=== PATIENT | male | born 1940 | race American Indian/Alaskan Native ===

== ENCOUNTER 2021-10-14 03:04 | Inpatient (IN) | payer MEDICARE ==
[2021-10-14] MEDS ORDERED: methylPREDNISolone Sod Succinate 125 MG/2 ML INJ IV ONE (03:27)
[2021-10-14] MEDS ORDERED: hydrALAZINE 20 MG/1 ML INJ IV ONE ×2 (03:27→04:28)
[2021-10-14] MEDS ORDERED: EPINEPHrine RACEMIC 2.25% 0.5ML NEBU IH ONE (03:39)
[2021-10-14] MEDS ORDERED: IPRATROPIUM/ALBUTEROL SULFATE 3 ML AMPUL.NEB IH ONE ×2 (03:40→08:20)
--- NOTE | 2021-10-14 03:47 | Emergency Department Report ---
HPI <CINDI PEREIRA - Last Filed: 10/14/21 08:20> - HPI HPI: 81-year-old -[place] male presents to the emergency department via EMS from home with a complaint of shortness of breath and feeling like something is stuck in his throat. This started around 10 PM this evening after the patient took his nighttime medications. He denies any nausea or vomiting, fever, chest pain, back pain. He has not taken anything for symptoms prior to presentation. He denies eating any food or having any object that may have become lodged within his throat. He says that he is able to drink fluid. He has a past medical history of hypertension and diabetes. No recent travel or sick contacts at home. <HEYDI RUGGIERO - Last Filed: 10/14/21 21:12> - General Chief Complaint: Dyspnea/Respdistress Time Seen by Provider: 10/14/21 03:25 ED Past Medical Hx - Past Medical History Hx Hypertension: Yes Hx Diabetes: Yes - Surgical History Past Surgical History?: Yes <HEYDI RUGGIERO - Last Filed: 10/14/21 21:12> ED Review of Systems ROS: Stated complaint: DIFFICULTY BREATHING Other details as noted in HPI <CINDI PEREIRA - Last Filed: 10/14/21 08:20> ROS: Stated complaint: DIFFICULTY BREATHING Other details as noted in HPI Comment: All other systems reviewed and negative Constitutional: denies: chills, fever Eyes: denies: eye pain, vision change ENT: throat pain. denies: ear pain Respiratory: cough, shortness of breath Cardiovascular: denies: chest pain, palpitations Gastrointestinal: denies: abdominal pain, vomiting Genitourinary: denies: dysuria, discharge Musculoskeletal: denies: back pain, arthralgia Skin: denies: rash, lesions Neurological: denies: headache, weakness <HEYDI RUGGIERO - Last Filed: 10/14/21 21:12> Physical Exam - Physical Exam Vital Signs: Vital Signs 10/14/21 10/14/21 10/14/21 03:15 03:41 03:43 Temperature 98.6 F Pulse Rate 93 H 84 Pulse Rate [ Bilateral Throughout] Respiratory 20 Rate Respiratory Rate [Bilateral Throughout] Blood Pressure 209/110 198/106 Blood Pressure 208/116 [Left] O2 Sat by Pulse 100 99 Oximetry 0110/14/21 10/14/21 03:45 04:00 04:01 Temperature Pulse Rate 78 Pulse Rate [ 93 H Bilateral Throughout] Respiratory 23 Rate Respiratory 24 Rate [Bilateral Throughout] Blood Pressure 198/106 185/93 Blood Pressure [Left] O2 Sat by Pulse 99 99 Oximetry 10/14/21 10/14/21 10/14/21 04:15 04:31 04:40 Temperature Pulse Rate 91 H 94 H 94 H Pulse Rate [ Bilateral Throughout] Respiratory 21 22 Rate Respiratory Rate [Bilateral Throughout] Blood Pressure 216/109 210/95 210/95 Blood Pressure [Left] O2 Sat by Pulse 100 100 Oximetry 10/14/21 10/14/21 10/14/21 04:45 05:01 05:15 Temperature Pulse Rate 90 75 82 Pulse Rate [ Bilateral Throughout] Respiratory 25 H 22 18 Rate Respiratory Rate [Bilateral Throughout] Blood Pressure 186/84 148/69 145/58 Blood Pressure [Left] O2 Sat by Pulse 99 99 Oximetry 10/14/21 10/14/21 10/14/21 05:31 06:45 07:00 Temperature Pulse Rate 78 96 H 102 H Pulse Rate [ Bilateral Throughout] Respiratory 23 25 H 27 H Rate Respiratory Rate [Bilateral Throughout] Blood Pressure 131/54 131/55 136/61 Blood Pressure [Left] O2 Sat by Pulse 96 98 99 Oximetry <CINDI PEREIRA - Last Filed: 10/14/21 08:20> - Physical Exam Vital Signs: Vital Signs 10/14/21 10/14/21 03:15 03:41 Temperature 98.6 F Pulse Rate 93 H 84 Respiratory 20 Rate Blood Pressure 209/110 Blood Pressure 208/116 [Left] O2 Sat by Pulse 100 Oximetry Physical Exam: GENERAL: The patient is well-developed well-nourished. HENT: Normocephalic. Atraumatic. Patient has moist mucous membranes. EYES: Extraocular motions are intact. NECK: Supple. Trachea is midline. Stridor heard. CHEST/LUNGS: Clear to auscultation. There is tachypnea but no accessory muscle use. HEART/CARDIOVASCULAR: Regular. There is mild tachycardia. There is no murmur. ABDOMEN: Abdomen is soft, nontender. Patient has normal bowel sounds. There is no abdominal distention. SKIN: Skin is warm and dry. NEURO: The patient is awake, alert, and oriented. The patient is cooperative. The patient has no focal neurologic deficits. Normal speech. MUSCULOSKELETAL: There is no tenderness or deformity. There is no limitation range of motion. <HEYDI RUGGIERO - Last Filed: 10/14/21 21:12> ED Course Vital Signs 10/14/21 10/14/21 10/14/21 03:15 03:41 03:43 Temperature 98.6 F Pulse Rate 93 H 84 Pulse Rate [ Bilateral Throughout] Respiratory 20 Rate Respiratory Rate [Bilateral Throughout] Blood Pressure 209/110 198/106 Blood Pressure 208/116 [Left] O2 Sat by Pulse 100 99 Oximetry 10/14/21 10/14/21 10/14/21 03:45 04:00 04:01 Temperature Pulse Rate 78 Pulse Rate [ 93 H Bilateral Throughout] Respiratory 23 Rate Respiratory 24 Rate [Bilateral Throughout] Blood Pressure 198/106 185/93 Blood Pressure [Left] O2 Sat by Pulse 99 99 Oximetry 10/14/21 10/14/21 10/14/21 04:15 04:31 04:40 Temperature Pulse Rate 91 H 94 H 94 H Pulse Rate [ Bilateral Throughout] Respiratory 21 22 Rate Respiratory Rate [Bilateral Throughout] Blood Pressure 216/109 210/95 210/95 Blood Pressure [Left] O2 Sat by Pulse 100 100 Oximetry 10/14/21 10/14/21 10/14/21 04:45 05:01 05:15 Temperature Pulse Rate 90 75 82 Pulse Rate [ Bilateral Throughout] Respiratory 25 H 22 18 Rate Respiratory Rate [Bilateral Throughout] Blood Pressure 186/84 148/69 145/58 Blood Pressure [Left] O2 Sat by Pulse 99 99 Oximetry 10/14/21 10/14/21 10/14/21 05:31 06:45 07:00 Temperature Pulse Rate 78 96 H 102 H Pulse Rate [ Bilateral Throughout] Respiratory 23 25 H 27 H Rate Respiratory Rate [Bilateral Throughout] Blood Pressure 131/54 131/55 136/61 Blood Pressure [Left] O2 Sat by Pulse 96 98 99 Oximetry <CINDI PEREIRA - Last Filed: 10/14/21 08:20> Vital Signs 10/14/21 10/14/21 03:15 03:41 Temperature 98.6 F Pulse Rate 93 H 84 Respiratory 20 Rate Blood Pressure 209/110 Blood Pressure 208/116 [Left] O2 Sat by Pulse 100 Oximetry <HEYDI RUGGIERO - Last Filed: 10/14/21 21:12> ED Medical Decision Making - Lab Data Result diagrams: 10/14/21 04:21 10/14/21 04:21 - Radiology Data tient ID My Comment(s) Study Comments [address] [address] Cat Scan Report Signed Patient: SAL CLINTON MR#: [id number] : 1940 Acct:[id number] Age/Sex: 81 / M ADM Date: 10/14/21 Loc: ED Attending Dr: Ordering Physician: Cindi Mason MD Date of Service: 10/14/21 Procedure(s): CT neck wo con Accession Number(s): [id number] cc: Cindi Mason MD CT neck wo con INDICATION / CLINICAL INFORMATION: Stridor dyspnea. TECHNIQUE: Axial coronal and sagittal images All CT scans at this location are performed using CT dose reduction for ALARA by means of automated exposure control. COMPARISON: None available. FINDINGS: Parotid glands and submandibular glands appear normal. Small lymph nodes are scattered throughout the neck. Peristalsis soft tissues appear symmetric. Vocal folds may be mildly thickened however sym metric. There is diffuse esophageal wall thickening throughout. No significant mass effect on the trachea. Epiglottis appears normal. Degenerative changes seen throughout spine examination is slightly limited without IV contrast.. There may be some generalized soft tissue thickening and inflammation surrounding the airway. IMPRESSION: 1. Diffuse esophageal wall thickening throughout. Follow-up with GI is recommended. 2. Scattered small nodes throughout the neck however no dominant adenopathy or dominant mass. Symmetric soft tissue inflammation surrounding the airway at the region of the vocal folds, piriform sinuses and vallecula Signer Name: Wan Antonio MD Signed: 10/14/2021 7:41 AM Workstation Name: [id number] [address] [address] Cat Scan Report Signed Patient: SAL CLINTON MR#: [id number] : 1940 Acct:[id number] Age/Sex: 81 / M ADM Date: 10/14/21 Loc: ED Attending Dr: Ordering Physician: HEYDI RUGGIERO DO Date of Service: 10/14/21 Procedure(s): CT angio chest Accession Number(s): [id number] cc: HEYDI RUGGIERO, DO CTA CHEST WITH CONTRAST INDICATION / CLINICAL INFORMATION: S.O.B., elevated D-dimer, abnormal CXR (neck). TECHNIQUE: Axial CT images were obtained through the chest after injection of IV contrast. 3 plane MIP and/or 3D reconstructions were produced. All CT scans at this location are performed using CT dose reduction for ALARA by means of automated exposure control. COMPARISON: None available. FINDINGS: The pulmonary arteries are patent without filling defect or evidence for PTE. Esophageal wall is thickened throughout. Small pleural effusions are identified. No focal consolidation pleural effusion. No acute bone findings are seen. IMPRESSION: 1. No CT evidence for pulmonary embolism. 2. Diffuse thickening of esophageal wall throughout. Clinical correlation follow-up is recommended with GI. 3. Small pleural effusions. Signer Name: Wan Antonio MD Signed: 10/14/2021 7:37 AM Workstation Name: [id number] Transcribed By: CW Dictated By: GARY ANTONIO MD Electronically Authenticated By: GARY ANTONIO MD Signed Date/Time: 10/14/21736 DD/ 4 TD/TT: - Medical Decision Making I evaluated patient. He has intermittent stridor. CT revealed possible inflammation near the vocal cords. Normal epiglottis. There is diffuse esophageal wall thickening. Differential diagnosis includes malignancy, pharyngitis, COPD, vocal cord dysfunction I have ordered additional steroids antibiotics bronchodilators nebulizer therapy. Admitted to the hospital service for further treatment and evaluation. Esophageal thickening consideration esophagitis malignancy will need outpatient evaluation. Unclear if this is related to presentation. <CINDI PEREIRA - Last Filed: 10/14/21 08:20> - Lab Data Result diagrams: 10/14/21 04:21 10/14/21 04:21 Lab Results 10/14/21 10/14/21 10/14/21 Range/Units 04:21 04:21 04:21 WBC 12.6 H (4.5-11.0) K/mm3 RBC 5.32 H (3.65-5.03) M/mm3 Hgb 14.6 (11.8-15.2) gm/dl Hct 45.7 H (35.5-45.6) % MCV 86 (84-94) fl MCH 28 (28-32) pg MCHC 32 (32-34) % RDW 14.8 (13.2-15.2) % Plt Count 190 (140-440) K/mm3 Lymph % (Auto) 17.6 (13.4-35.0) % Holmes % (Auto) 8.9 H (0.0-7.3) % Eos % (Auto) 2.0 (0.0-4.3) % Baso % (Auto) 0.5 (0.0-1.8) % Lymph # (Auto) 2.2 (1.2-5.4) K/mm3 Holmes # (Auto) 1.1 H (0.0-0.8) K/mm3 Eos # (Auto) 0.3 (0.0-0.4) K/mm3 Baso # (Auto) 0.1 (0.0-0.1) K/mm3 Seg Neutrophils % 71.0 H (40.0-70.0) % Seg Neutrophils # 8.9 H (1.8-7.7) K/mm3 PT 13.9 (12.2-14.9) Sec. INR 0.96 (0.87-1.13) D-Dimer 473.24 H (0-234) ng/mlDDU Sodium 143 (137-145) mmol/L Potassium 3.5 L (3.6-5.0) mmol/L Chloride 103.2 (98-107) mmol/L Carbon Dioxide 25 (22-30) mmol/L Anion Gap 18 mmol/L BUN 20 (9-20) mg/dL Creatinine 1.6 H (0.8-1.3) mg/dL Estimated GFR 51 ml/min BUN/Creatinine Ratio 13 % Glucose 233 H (75-100) mg/dL Lactic Acid (0.7-2.0) mmol/L Calcium 9.2 (8.4-10.2) mg/dL Total Bilirubin 0.60 (0.1-1.2) mg/dL AST 20 (5-40) units/L ALT 43 (7-56) units/L Alkaline Phosphatase 103 (35-129) units/L Troponin T 0.011 (0.00-0.029) ng/mL Total Protein 7.5 (6.3-8.2) g/dL Albumin 4.0 (3.9-5) g/dL Albumin/Globulin Ratio 1.1 % 10/14/21 10/14/21 Range/Units 04:21 05:43 WBC (4.5-11.0) K/mm3 RBC (3.65-5.03) M/mm3 Hgb (11.8-15.2) gm/dl Hct (35.5-45.6) % MCV (84-94) fl MCH (28-32) pg MCHC (32-34) % RDW (13.2-15.2) % Plt Count (140-440) K/mm3 Lymph % (Auto) (13.4-35.0) % Holmes % (Auto) (0.0-7.3) % Eos % (Auto) (0.0-4.3) % Baso % (Auto) (0.0-1.8) % Lymph # (Auto) (1.2-5.4) K/mm3 Holmes # (Auto) (0.0-0.8) K/mm3 Eos # (Auto) (0.0-0.4) K/mm3 Baso # (Auto) (0.0-0.1) K/mm3 Seg Neutrophils % (40.0-70.0) % Seg Neutrophils # (1.8-7.7) K/mm3 PT (12.2-14.9) Sec. INR (0.87-1.13) D-Dimer (0-234) ng/mlDDU Sodium (137-145) mmol/L Potassium (3.6-5.0) mmol/L Chloride (98-107) mmol/L Carbon Dioxide (22-30) mmol/L Anion Gap mmol/L BUN (9-20) mg/dL Creatinine (0.8-1.3) mg/dL Estimated GFR ml/min BUN/Creatinine Ratio % Glucose (75-100) mg/dL Lactic Acid 2.90 H* 4.10 H* (0.7-2.0) mmol/L Calcium (8.4-10.2) mg/dL Total Bilirubin (0.1-1.2) mg/dL AST (5-40) units/L ALT (7-56) units/L Alkaline Phosphatase (35-129) units/L Troponin T (0.00-0.029) ng/mL Total Protein (6.3-8.2) g/dL Albumin (3.9-5) g/dL Albumin/Globulin Ratio % - EKG Data -: EKG Interpreted by Me EKG shows normal: sinus rhythm (PACs), axis (Right axis deviation), intervals, QRS complexes, ST-T waves Rate: normal - EKG Data When compared to previous EKG there are: previous EKG unavailable Interpretation: other (Sinus rhythm at 86 bpm, left axis deviation, PACs. No ST elevation IA) - Radiology Data Radiology results: report reviewed Soft tissue neck 2 views INDICATION: Feels like something stuck FINDINGS: No foreign body is identified. Airway appears patent. Shift of trachea to the left at the level of thoracic inlet could be secondary to thyroid or mass, nonspecific. Follow-up and clinical correlation. CHEST 1 VIEW 10/14/2021 2:44 AM INDICATION / CLINICAL INFORMATION: SOB. COMPARISON: None available. FINDINGS: SUPPORT DEVICES: None. HEART / MEDIASTINUM: No significant abnormality. LUNGS / PLEURA: Mild increased pulmonary vascularity with interstitial prominence in bilateral lungs No pneumothorax. Neck soft tissue 2 views INDICATION: Difficulty breathing FINDINGS: No prevertebral soft tissue swelling. The airway appears open. There is shift of the trachea to the left in the upper neck which may be due to degenerative change or thyroid. - Medical Decision Making This patient presented to the emergency department with the sensation that something was stuck in his throat and shortness of breath that started this evening around 10 PM. On examination he has some stridor heard. His initial vitals show an extremely elevated blood pressure. Patient was given a dose of hydralazine. He was given a breathing treatment w ith racemic epi, followed by a DuoNeb. The patient began having some nausea with vomiting. He was given a dose of Zofran, and then later a dose of Reglan. Chest x-ray did not show any pneumonia, pleural effusions, pneumothorax, widened mediastinum, but was read by radiology as showing a left-sided deviation of the trachea concerning for thyromegaly versus mass. The same was seen on the x-ray of the neck. Labs are remarkable for an elevated D-dimer level and some mild renal insufficiency. Patient also has a lactic acidosis. I attempted to get a CT angiography of the chest and discussed going up high enough on the CT imaging to evaluate the neck as well. However the patient continues to have some nausea with vomiting and does not appear comfortable laying flat and they were unable to finish the CT imaging. The has been signed out to my colleague, Dr. Pereira, who will continue the evaluation and assist with disposition. <HEYDI RUGGIERO S - Last Filed: 10/14/21 21:12> Critical care attestation.: If time is entered above; I have spent that time in minutes in the direct care of this critically ill patient, excluding procedure time. <CINDI PEREIRA - Last Filed: 10/14/21 08:20> Critical Care Time: No Critical care attestation.: If time is entered above; I have spent that time in minutes in the direct care of this critically ill patient, excluding procedure time. <HEYDI RUGGIERO - Last Filed: 10/14/21 21:12> ED Disposition Is pt being admited?: Yes Does the pt Need Aspirin: No <CINDI PEREIRA - Last Filed: 10/14/21 08:20> Is pt being admited?: Yes Time of Disposition: 21:12 <HEYDI RUGGIERO - Last Filed: 10/14/21 21:12> Clinical Impression: Acute dyspnea, Hypertensive urgency, Esophagitis Disposition: ADMITTED INPATIENT Condition: Fair
--- NOTE | 2021-10-14 03:54 | XRay Report ---
CHEST 1 VIEW 10/14/2021 2:44 AM INDICATION / CLINICAL INFORMATION: SOB. COMPARISON: None available. FINDINGS: SUPPORT DEVICES: None. HEART / MEDIASTINUM: No significant abnormality. LUNGS / PLEURA: Mild increased pulmonary vascularity with interstitial prominence in bilateral lungs No pneumothorax. Neck soft tissue 2 views INDICATION: Difficulty breathing FINDINGS: No prevertebral soft tissue swelling. The airway appears open. There is shift of the trache a to the left in the upper neck which may be due to degenerative change or thyroid. Signer Name: Wan Antonio MD Signed: 10/14/2021 3:50 AM Workstation Name: [id number]
--- NOTE | 2021-10-14 03:55 | XRay Report ---
Soft tissue neck 2 views INDICATION: Feels like something stuck FINDINGS: No foreign body is identified. Airway appears patent. Shift of trachea to the left at the l evel of thoracic inlet could be secondary to thyroid or mass, nonspecific. Follow-up and clinical cor relation. Signer Name: Wan Antonio MD Signed: 10/14/2021 3:51 AM Workstation Name: [id number]
[2021-10-14] MEDS ORDERED: ONDANSETRON 4 MG/2 ML INJ IV ONE ×2 (04:35→06:05)
[2021-10-14] MEDS ORDERED: ONDANSETRON 4 MG/2 ML INJ ONE (04:36)
[2021-10-14 04:39] LABS: Basophils # (Auto) 0.1 K/mm3 (0.0-0.1); Basophils % (Auto) 0.5 % (0.0-1.8); Eosinophils # (Auto) 0.3 K/mm3 (0.0-0.4); Hematocrit 45.7 % (35.5-45.6); Hemoglobin 14.6 gm/dl (11.8-15.2); Lymphocytes # (Auto) 2.2 K/mm3 (1.2-5.4); Lymphocytes % (Auto) 17.6 % (13.4-35.0); Mean Corpuscular HGB Conc 32 % (32-34); Mean Corpuscular Volume 86 fl (84-94); Monocytes # (Auto) 1.1 K/mm3 (0.0-0.8); Monocytes % (Auto) 8.9 % (0.0-7.3); Platelet Count 190 K/mm3 (140-440); Red Blood Count 5.32 M/mm3 (3.65-5.03); Red Cell Distribution Width 14.8 % (13.2-15.2)
[2021-10-14 04:47] LABS: INR 0.96 (0.87-1.13)
[2021-10-14 05:03] LABS: Calcium 9.2 mg/dL (8.4-10.2)
[2021-10-14] MEDS ORDERED: METOCLOPRAMIDE 10 MG/2 ML INJ IV ONE (05:07)
--- NOTE | 2021-10-14 07:41 | Cat Scan Report ---
CTA CHEST WITH CONTRAST INDICATION / CLINICAL INFORMATION: S.O.B., elevated D-dimer, abnormal CXR (neck). TECHNIQUE: Axial CT images were obtained through the chest after injection of IV contrast. 3 plane RI P and/or 3D reconstructions were produced. All CT scans at this location are performed using CT dose reduction for ALARA by means of automated exposure control. COMPARISON: None available. FINDINGS: The pulmonary arteries are patent without filling defect or evidence for PTE. Esophageal wall is thic kened throughout. Small pleural effusions are identified. No focal consolidation pleural effusion. No acute bone findings are seen. IMPRESSION: 1. No CT evidence for pulmonary embolism. 2. Diffuse thickening of esophageal wall throughout. Clinical correlation follow-up is recommended wi th GI. 3. Small pleural effusions. Signer Name: Wan Antonio MD Signed: 10/14/2021 7:37 AM Workstation Name: [id number]
--- NOTE | 2021-10-14 07:45 | Cat Scan Report ---
CT neck wo con INDICATION / CLINICAL INFORMATION: Stridor dyspnea. TECHNIQUE: Axial coronal and sagittal images All CT scans at this location are performed using CT dose reduction for ALARA by means of automated exposure control. COMPARISON: None available. FINDINGS: Parotid glands and submandibular glands appear normal. Small lymph nodes are scattered throughout the neck. Peristalsis soft tissues appear symmetric. Vocal folds may be mildly thickened however symmetr ic. There is diffuse esophageal wall thickening throughout. No significant mass effect on the trachea . Epiglottis appears normal. Degenerative changes seen throughout spine examination is slightly limit ed without IV contrast.. There may be some generalized soft tissue thickening and inflammation surrou nding the airway. IMPRESSION: 1. Diffuse esophageal wall thickening throughout. Follow-up with GI is recommended. 2. Scattered small nodes throughout the neck however no dominant adenopathy or dominant mass. Symmetr ic soft tissue inflammation surrounding the airway at the region of the vocal folds, piriform sinuses and vallecula Signer Name: Wan Antonio MD Signed: 10/14/2021 7:41 AM Workstation Name: [id number]
[2021-10-14] MEDS ORDERED: dexAMETHasone 20 MG/5 ML VIAL IV ONE (22:04)
[2021-10-14] MEDS ORDERED: PANTOPRAZOLE 40 MG INJ IV ONE (22:10)
--- NOTE | 2021-10-14 23:14 | History and Physical Report ---
History of Present Illness Date of examination: 10/14/21 Date of admission: 10/14/2021 Chief complaint: Shortness of breath since last night History of present illness: 81-year-old -[place] male with history of hypertension and diabetes comes in for shortness of breath and sore throat. Started around 10 PM last night. No nausea or vomiting. No fever or chills. Shortness of breath at rest. No chest pain. No back pain. No travel or sick contacts. Patient has some difficulty swallowing and some pain with swallowing. - Past Medical History --Hypertension: Yes --Diabetes: Yes - Surgical History --Past Surgical History?: Yes - Family history --hypertension -Social history --no smoking or alcohol Review of Systems ROS: Stated complaint: DIFFICULTY BREATHING Other details as noted in HPI Comment: All other systems reviewed and negative Constitutional: denies: chills, fever Eyes: denies: eye pain, vision change ENT: throat pain. denies: ear pain Respiratory: cough, shortness of breath Cardiovascular: denies: chest pain, palpitations Gastrointestinal: denies: abdominal pain, vomiting Genitourinary: denies: dysuria, discharge Musculoskeletal: denies: back pain, arthralgia Skin: denies: rash, lesions Neurological: denies: headache, weakness Medications and Allergies Allergies Allergy/AdvReac Type Severity Reaction Status Date / Time No Known Allergies Allergy Verified 10/14/21 04:47 Exam - Constitutional Vitals: Temp Pulse Resp BP Pulse Ox 97.8 F 90 18 153/83 100 10/14/21 09:44 10/14/21 21:00 10/14/21 21:00 10/14/21 21:00 10/14/21 21:00 General appearance: Present: no acute distress, well-nourished - EENT Eyes: Present: PERRL ENT: hearing intact, clear oral mucosa - Neck Neck: Present: supple, normal ROM - Respiratory Respiratory effort: normal Respiratory: bilateral: CTA, rhonchi, wheezing - Cardiovascular Heart rate: 78 Rhythm: regular Heart Sounds: Present: S1 & S2. Absent: rub, click - Extremities Extremities: pulses symmetrical, No edema Peripheral Pulses: within normal limits - Abdominal General gastrointestinal: Present: soft, non-tender, non-distended, normal bowel sounds Male genitourinary: Present: normal - Integumentary Integumentary: Present: clear, warm, dry - Musculoskeletal Musculoskeletal: gait normal, strength equal bilaterally - Psychiatric Psychiatric: appropriate mood/affect, intact judgment & insight - Neurologic Neurologic: CNII-XII intact, moves all extremities - Allied Health Allied health notes reviewed: nursing, case management HEART Score - HEART Score Troponin: Troponin T 0.011 ng/mL (0.00-0.029) 10/14/21 04:21 Results - Labs CBC & Chem 7: 10/14/21 04:21 10/14/21 04:21 Labs: Laboratory Last Values WBC 12.6 K/mm3 (4.5-11.0) H 10/14/21 04:21 RBC 5.32 M/mm3 (3.65-5.03) H 10/14/21 04:21 Hgb 14.6 gm/dl (11.8-15.2) 10/14/21 04:21 Hct 45.7 % (35.5-45.6) H 10/14/21 04:21 MCV 86 fl (84-94) 10/14/21 04:21 MCH 28 pg (28-32) 10/14/21 04:21 MCHC 32 % (32-34) 10/14/21 04:21 RDW 14.8 % (13.2-15.2) 10/14/21 04:21 Plt Count 190 K/mm3 (140-440) 10/14/21 04:21 Lymph % (Auto) 17.6 % (13.4-35.0) 10/14/21 04:21 [place] % (Auto) 8.9 % (0.0-7.3) H 10/14/21 04:21 Eos % (Auto) 2.0 % (0.0-4.3) 10/14/21 04:21 Baso % (Auto) 0.5 % (0.0-1.8) 10/14/21 04:21 Lymph # (Auto) 2.2 K/mm3 (1.2-5.4) 10/14/21 04:21 [place] # (Auto) 1.1 K/mm3 (0.0-0.8) H 10/14/21 04:21 Eos # (Auto) 0.3 K/mm3 (0.0-0.4) 10/14/21 04:21 Baso # (Auto) 0.1 K/mm3 (0.0-0.1) 10/14/21 04:21 Seg Neutrophils % 71.0 % (40.0-70.0) H 10/14/21 04:21 Seg Neutrophils # 8.9 K/mm3 (1.8-7.7) H 10/14/21 04:21 PT 13.9 Sec. (12.2-14.9) 10/14/21 04:21 INR 0.96 (0.87-1.13) 10/14/21 04:21 D-Dimer 473.24 ng/mlDDU (0-234) H 10/14/21 04:21 Sodium 143 mmol/L (137-145) 10/14/21 04:21 Potassium 3.5 mmol/L (3.6-5.0) L 10/14/21 04:21 Chloride 103.2 mmol/L (98-107) 10/14/21 04:21 Carbon Dioxide 25 mmol/L (22-30) 10/14/21 04:21 Anion Gap 18 mmol/L 10/14/21 04:21 BUN 20 mg/dL (9-20) 10/14/21 04:21 Creatinine 1.6 mg/dL (0.8-1.3) H 10/14/21 04:21 Estimated GFR 51 ml/min 10/14/21 04:21 BUN/Creatinine Ratio 13 % 10/14/21 04:21 Glucose 233 mg/dL (75-100) H 10/14/21 04:21 Lactic Acid 4.10 mmol/L (0.7-2.0) H* 10/14/21 05:43 Calcium 9.2 mg/dL (8.4-10.2) 10/14/21 04:21 Total Bilirubin 0.60 mg/dL (0.1-1.2) 10/14/21 04:21 AST 20 units/L (5-40) 10/14/21 04:21 ALT 43 units/L (7-56) 10/14/21 04:21 Alkaline Phosphatase 103 units/L (35-129) 10/14/21 04:21 Troponin T 0.011 ng/mL (0.00-0.029) 10/14/21 04:21 Total Protein 7.5 g/dL (6.3-8.2) 10/14/21 04:21 Albumin 4.0 g/dL (3.9-5) 10/14/21 04:21 Albumin/Globulin Ratio 1.1 % 10/14/21 04:21 - Imaging and Cardiology Imaging and Cardiology: Chest x-ray next Lungs mild increased pulmonary vascularity with interstitial prominence and bilateral lungs. No pneumothorax. Findings No prevertebral soft tissue swelling. The airway appears open. There is shift of the trachea to the left in the upper neck which may be related to degenerative changes or thyroid swelling Soft tissue of the neck No foreign body. Distal trachea to the left Could be secondary to thyroid mass Nonspecific Chest CT No CT evidence of pulmonary embolism Diffuse thickening of the esophageal wall throughout Clinical correlation quality recommended with GI Small pleural effusion Neck CT diffuse esophageal wall thickening throughout. Follow-up with GI as recommended Scattered small nodes throughout the neck however no dominant adenopathy or dominant mass. Symptoms asymmetric soft tissue inflammation surrounding the area in the region of the vocal folds pyriform sinuses and vallecula. Assessment and Plan Advance Directives: Yes (Full code chief) Plan of care discussed with patient/family: Yes - Patient Problems (1) SIRS (systemic inflammatory response syndrome) Current Visit: Yes Status: Acute Plan to address problem: Inflammatory markers elevated Lactic acid is elevated Rule out COVID (2) Hypertensive emergency Current Visit: Yes Status: Acute Plan to address problem: Patient initiated on valsartan and amlodipine and Coreg IV hydralazine 10 mg every 3 hours as needed (3) GUILLAUME (acute kidney injury) Current Visit: Yes Status: Acute Plan to address problem: IV fluids gently for 12 hours (4) Esophagitis Current Visit: Yes Status: Acute Plan to address problem: GI evaluation Possible EGD Protonix 40 mg IV twice a day (5) COPD (chronic obstructive pulmonary disease) Current Visit: Yes Status: Acute Plan to address problem: Patient initiated on IV antibiotics Rocephin and, Zithromax and IV Solu-Medrol May be discontinued in 24 to 48 hours depending on patient's response (6) T2DM (type 2 diabetes mellitus) Current Visit: Yes Status: Chronic Qualifiers: Diabetes mellitus [facility] insulin use: unspecified director long term care insulin use status Plan to address problem: Accu-Cheks every 6 and coverage Check hemoglobin A1c (7) Person under investigation for COVID-19 Current Visit: Yes Status: Acute Plan to address problem: COVID to be ruled out Coronavirus PCR in a.m. (8) Elevated brain natriuretic peptide (BNP) level Current Visit: Yes Status: Acute Plan to address problem: Echocardiogram for ejection fraction and valve function (9) DVT prophylaxis Current Visit: Yes Status: Acute Plan to address problem: On anticoagulation and GI prophylaxis (10) Advance care planning Current Visit: Yes Status: Acute Plan to address problem: Related education conducted, care plan discussed, diagnosis discussed, prognosis discussed. Patient is full code. Patient acknowledges understanding and agreement with care plan +30 minutes.
[2021-10-14] MEDS ORDERED: MORPHINE 2 MG/1 ML INJ IV PRN (23:15)
[2021-10-14] MEDS ORDERED: ONDANSETRON 4 MG/2 ML INJ IV PRN (23:15)
[2021-10-14] MEDS ORDERED: METOCLOPRAMIDE 10 MG/2 ML INJ IV PRN (23:15)
[2021-10-14] MEDS ORDERED: HYDROmorphone 1 MG/1 ML INJ IV PRN (23:15)
[2021-10-14] MEDS ORDERED: ACETAMINOPHEN 325 MG TAB PO PRN (23:15)
[2021-10-14] MEDS ORDERED: IPRATROPIUM/ALBUTEROL SULFATE 3 ML AMPUL.NEB IH PRN (23:18)
[2021-10-14] MEDS: AZITHROMYCIN/NS 500 MG/250 ML 500 MG/250 ML BAG IV SCH (23:50)
[2021-10-14] MEDS: methylPREDNISolone Sod Succinate 40 MG/1 ML INJ IV SCH (23:50)
[2021-10-15] MEDS: PANTOPRAZOLE 40 MG INJ IV SCH ×2 (02:16→13:46)
[2021-10-15] MEDS ORDERED: SODIUM CHLORIDE 0.9% 1000 ML 1,000 ML IV SCH (02:30)
[2021-10-15 06:31] LABS: Hematocrit 41.9 % (35.5-45.6); Hemoglobin 13.3 gm/dl (11.8-15.2); Mean Corpuscular HGB Conc 32 % (32-34); Mean Corpuscular Volume 86 fl (84-94); Platelet Count 160 K/mm3 (140-440); Red Blood Count 4.88 M/mm3 (3.65-5.03)
[2021-10-15] MEDS: INSULIN LISPRO 100 UNIT/ML SUB-Q SCH ×4 (06:34→18:15)
[2021-10-15] MEDS: methylPREDNISolone Sod Succinate 40 MG/1 ML INJ IV SCH ×3 (06:41→21:43)
[2021-10-15 07:13] LABS: Albumin 3.9 g/dL (3.9-5); Calcium 9.4 mg/dL (8.4-10.2)
--- NOTE | 2021-10-15 08:20 | Progress Note ---
Assessment and Plan Assessment and plan: 81-year-old -[place] male with history of hypertension and diabetes comes in for shortness of breath and sore throat. Started around 10 PM last night. No nausea or vomiting. No fever or chills. Shortness of breath at rest. No chest pain. No back pain. No travel or sick contacts. Patient has some difficulty swallowing and some pain with swallowing. Initial work-up chest x-ray next Lungs mild increased pulmonary vascularity with interstitial prominence and bilateral lungs. No pneumothorax. Findings No prevertebral soft tissue swelling. The airway appears open. There is shift of the trachea to the left in the upper neck which may be related to degenerative changes or thyroid swelling Soft tissue of the neck No foreign body. Distal trachea to the left Could be secondary to thyroid mass Nonspecific Chest CT No CT evidence of pulmonary embolism Diffuse thickening of the esophageal wall throughout Clinical correlation quality recommended with GI Small pleural effusion Neck CT diffuse esophageal wall thickening throughout. Follow-up with GI as recommended Scattered small nodes throughout the neck however no dominant adenopathy or dominant mass. Symptoms asymmetric soft tissue inflammation surrounding the area in the region of the vocal folds pyriform sinuses and vallecula. SIRS (systemic inflammatory response syndrome) Hypertensive emergency GUILLAUME (acute kidney injury) Secondary to vasomotor nephropathy Esophagitis COPD (chronic obstructive pulmonary disease) T2DM (type 2 diabetes mellitus) Elevated brain natriuretic peptide (BNP) level Person under investigation for COVID-19 Tracheal deviation with narrowing Elevated D-dimer Plan 10/15: Clinically patient has functional improvement room air sat is 100%. Nevertheless exertion has not been checked. Imaging studies is negative for pulmonary embolism. We will obtain a Doppler of the lower extremities and also obtain nephrology consultation due to worsening renal function which could be secondary to contrast-induced nephropathy versus mild underlying chronic stable congestive heart failure. Will await echocardiogram report at this time. We will also adjust insulin for better management Will obtain pulmonary consultation to further evaluate narrowing of the trachea possible extrinsic versus intrinsic compression. Continue Inflammatory markers elevated Lactic acid is elevated Rule out COVID Patient initiated on valsartan and amlodipine and Coreg IV hydralazine 10 mg every 3 hours as needed GI evaluation Possible EGD Protonix 40 mg IV twice a day Patient initiated on IV antibiotics Rocephin and, Zithromax and IV Solu-Medrol May be discontinued in 24 to 48 hours depending on patient's response Accu-Cheks every 6 and coverage Check hemoglobin A1c COVID to be ruled out Coronavirus PCR in a.m. Echocardiogram for ejection fraction and valve function Plan discussed with the patient and with the nurse at bedside. History Interval history: Patient seen and examined, clinically improving. No difficulty swallowing, reports improvement in breathing. Respiratory therapist reports 100% saturation on room air. Patient is a poor historian. Hospitalist Physical - Physical exam Narrative exam: General appearance: Present: no acute distress, cachetic, temporal wasting noted. - EENT Eyes: Present: PERRL ENT: hearing intact, clear oral mucosa - Neck Neck: Present: supple, normal ROM - Respiratory Respiratory effort: normal Respiratory: bilateral: mild rhonchi, No wheezing - Cardiovascular Heart rate: 78 Rhythm: regular Heart Sounds: Present: S1 & S2. Absent: rub, click - Extremities Extremities: pulses symmetrical, No edema Peripheral Pulses: within normal limits - Abdominal General gastrointestinal: Present: soft, non-tender, non-distended, normal bowel sounds Male genitourinary: Present: normal - Integumentary Integumentary: Present: clear, warm, dry - Musculoskeletal Musculoskeletal: gait normal, strength equal bilaterally - Psychiatric Psychiatric: appropriate mood/affect, intact judgment & insight - Neurologic Neurologic: CNII-XII intact, moves all extremities - Allied Health Allied health notes reviewed: nursing, case management - Constitutional Vitals: Temp Pulse Resp BP Pulse Ox 99.1 F 93 H 18 152/76 94 10/15/21 06:00 10/15/21 06:00 10/15/21 06:00 10/15/21 06:00 10/15/21 04:28 General appearance: Present: no acute distress, cachectic HEART Score - HEART Score Troponin: Troponin T 0.011 ng/mL (0.00-0.029) 10/14/21 04:21 Results - Labs CBC & Chem 7: 10/15/21 05:30 10/15/21 05:30 Labs: Laboratory Last Values WBC 13.5 K/mm3 (4.5-11.0) H 10/15/21 05:30 RBC 4.88 M/mm3 (3.65-5.03) 10/15/21 05:30 Hgb 13.3 gm/dl (11.8-15.2) 10/15/21 05:30 Hct 41.9 % (35.5-45.6) 10/15/21 05:30 MCV 86 fl (84-94) 10/15/21 05:30 MCH 27 pg (28-32) L 10/15/21 05:30 MCHC 32 % (32-34) 10/15/21 05:30 RDW 15.0 % (13.2-15.2) 10/15/21 05:30 Plt Count 160 K/mm3 (140-440) 10/15/21 05:30 Lymph % (Auto) 17.6 % (13.4-35.0) 10/14/21 04:21 [place] % (Auto) 8.9 % (0.0-7.3) H 10/14/21 04:21 Eos % (Auto) 2.0 % (0.0-4.3) 10/14/21 04:21 Baso % (Auto) 0.5 % (0.0-1.8) 10/14/21 04:21 Lymph # (Auto) 2.2 K/mm3 (1.2-5.4) 10/14/21 04:21 [place] # (Auto) 1.1 K/mm3 (0.0-0.8) H 10/14/21 04:21 Eos # (Auto) 0.3 K/mm3 (0.0-0.4) 10/14/21 04:21 Baso # (Auto) 0.1 K/mm3 (0.0-0.1) 10/14/21 04:21 Seg Neutrophils % National Account Representative 10/15/21 05:30 Seg Neutrophils # 8.9 K/mm3 (1.8-7.7) H 10/14/21 04:21 PT 13.9 Sec. (12.2-14.9) 10/14/21 04:21 INR 0.96 (0.87-1.13) 10/14/21 04:21 D-Dimer 473.24 ng/mlDDU (0-234) H 10/14/21 04:21 Sodium 140 mmol/L (137-145) 10/15/21 05:30 Potassium 4.5 mmol/L (3.6-5.0) D 10/15/21 05:30 Chloride 100.1 mmol/L (98-107) 10/15/21 05:30 Carbon Dioxide 25 mmol/L (22-30) 10/15/21 05:30 Anion Gap 19 mmol/L 10/15/21 05:30 BUN 30 mg/dL (9-20) H 10/15/21 05:30 Creatinine 2.3 mg/dL (0.8-1.3) H 10/15/21 05:30 Estimated GFR 33 ml/min 10/15/21 05:30 BUN/Creatinine Ratio 13 % 10/15/21 05:30 Glucose 279 mg/dL (75-100) H 10/15/21 05:30 POC Glucose 252 mg/dL (70-105) H 10/15/21 06:58 Hemoglobin A1c 8.2 % (4-6) H 10/15/21 05:30 Lactic Acid 4.10 mmol/L (0.7-2.0) H* 10/14/21 05:43 Calcium 9.4 mg/dL (8.4-10.2) 10/15/21 05:30 Total Bilirubin 0.50 mg/dL (0.1-1.2) 10/15/21 05:30 AST 49 units/L (5-40) H 10/15/21 05:30 ALT 62 units/L (7-56) H 10/15/21 05:30 Alkaline Phosphatase 88 units/L (35-129) 10/15/21 05:30 Troponin T 0.011 ng/mL (0.00-0.029) 10/14/21 04:21 NT-Pro-B Natriuret Pep 4751 pg/mL (0-900) H 10/14/21 22:33 Total Protein 6.9 g/dL (6.3-8.2) 10/15/21 05:30 Albumin 3.9 g/dL (3.9-5) 10/15/21 05:30 Albumin/Globulin Ratio 1.3 % 10/15/21 05:30 Govea/IV: Voiding Method Urinal Active Medications - Current Medications Current Medications: Generic Name Dose Route Start Last Admin Trade Name Freq PRN Reason Stop Dose Admin Acetaminophen 650 mg 10/14/21 23:15 Acetaminophen 325 Mg Tab PO Q4H PRN Pain MILD(1-3)/Fever >100.5/ROONEY Albuterol/Ipratropium 1 ampul 10/15/21 08:00 Ipratropium/Albuterol Sulfate 3 Ml Ampul.Neb IH QIDRT MARY Enoxaparin Sodium 30 mg 10/15/21 10:00 Enoxaparin 30 Mg/0.3 Ml Inj SUB-Q QDAY MARY Hydromorphone HCl 0.5 mg 10/14/21 23:15 Hydromorphone 1 Mg/1 Ml Inj IV Q3H PRN Pain , Severe (7-10) Azithromycin 500 mg in 250 mls @ 250 mls/hr 10/14/21 23:45 10/14/21 23:50 Zithromax/Ns IV 10/18/21 10:59 250 mls/hr Q24HR MARY Administration Ceftriaxone Sodium 2 gm in 100 mls @ 200 mls/hr 10/15/21 10:00 Rocephin/Ns 2 Gm/100 Ml IV 10/19/21 10:29 Q24HR MARY Protocol Sodium Chloride 1,000 mls @ 75 mls/hr 10/15/21 02:30 10/15/21 07:24 Nacl 0.9% 1000 Ml IV 10/15/21 11:30 75 mls/hr DIRECT MARY Administration Insulin Human Lispro 0 unit 10/15/21 06:00 10/15/21 07:23 Insulin Lispro 100 Unit/Ml SUB-Q 4 unit Q6HR MARY Administration Protocol Methylprednisolone Sodium Succinate 60 mg 10/14/21 23:45 10/15/21 06:41 Methylprednisolone Sod Succinate 40 Mg/1 Ml Inj IV 60 mg Q8HR MARY Administration Metoclopramide HCl 5 mg 10/14/21 23:15 Metoclopramide 10 Mg/2 Ml Inj IV Q6H PRN Nausea And Vomiting Morphine Sulfate 2 mg 10/14/21 23:15 Morphine 2 Mg/1 Ml Inj IV Q4H PRN Pain, Moderate (4-6) Ondansetron HCl 4 mg 10/14/21 23:15 Ondansetron 4 Mg/2 Ml Inj IV Q8H PRN Nausea And Vomiting Pantoprazole Sodium 40 mg 10/14/21 23:45 10/15/21 02:16 Pantoprazole 40 Mg Inj IV Not Given Q12H MARY Sodium Chloride 10 ml 10/15/21 10:00 Sodium Chloride 0.9% 10 Ml Flush Syringe IV BID MARY Sodium Chloride 10 ml 01/22/22 23:15 Sodium Chloride 0.9% 10 Ml Flush Syringe IV PRN PRN LINE FLUSH
[2021-10-15] MEDS: IPRATROPIUM/ALBUTEROL SULFATE 3 ML AMPUL.NEB IH SCH ×4 (09:04→19:11)
[2021-10-15] MEDS: ENOXAPARIN 30 MG/0.3 ML INJ SUB-Q SCH (09:54)
[2021-10-15] MEDS: cefTRIAXone/NS 2 GM/100 ML 2 GM/100 ML BAG IV SCH (09:54)
[2021-10-15] MEDS ORDERED: ENOXAPARIN 40 MG/0.4 ML INJ SUB-Q SCH (10:00)
[2021-10-15 10:14] LABS: Basophils % (Manual) 0 % (0.0-1.8); Eosinophils % (Manual) 0 % (0.0-4.3); Total Cells Counted 100
[2021-10-15 10:15] LABS: Platelet Estimate Consistent w Auto; RBC Morphology Normal
[2021-10-15] MEDS: AZITHROMYCIN/NS 500 MG/250 ML 500 MG/250 ML BAG IV SCH (10:44)
--- NOTE | 2021-10-15 15:05 | Gastroenterology Consultation ---
History of Present Illness - Reason for Consult Consult date: 10/15/21 dysphagia Requesting physician: PADDY GONG - History of Present Illness This is an 81 yo AAM with pmh of HTN, DM admitted for sob on 10/14/2020. He is undergoing treatment for COPD. GI consulted for dysphagia. Patient reports having difficulty with food getting stuck and regurgitating for the past year. Recently he has been having difficulty with swallowing liquids. No abdominal pain, nausea, or bleeding. No prior EGD. Colonoscopy 10 years ago and unknown results. Work up so far with CT chest: no PE, diffuse thickening of the esophagus, small pleural effusion. scattered small nodes throughout the neck. Medication list reviewed. Past History Past Medical History: diabetes, hypertension Past Surgical History: denies: bowel surgery Social history: lives with family. denies: smoking Family history: no significant family history Medications and Allergies Allergies Allergy/AdvReac Type Severity Reaction Status Date / Time No Known Allergies Allergy Verified 10/14/21 04:47 Home Medications Medication Instructions Recorded Confirmed Last Taken Type Lisinopril 10/15/21 10/14/21 History glipiZIDE 10/15/21 10/14/21 History Active Meds: Active Medications Acetaminophen (Acetaminophen 325 Mg Tab) 650 mg PO Q4H PRN PRN Reason: Pain MILD(1-3)/Fever >100.5/ROONEY Albuterol/Ipratropium (Ipratropium/Albuterol Sulfate 3 Ml Ampul.Neb) 1 ampul IH QIDRT [facility] Last Admin: 10/15/21 13:31 Dose: Not Given Enoxaparin Sodium (Enoxaparin 30 Mg/0.3 Ml Inj) 30 mg SUB-Q QDAY [facility] Last Admin: 10/15/21 09:54 Dose: 30 mg Hydromorphone HCl (Hydromorphone 1 Mg/1 Ml Inj) 0.5 mg IV Q3H PRN PRN Reason: Pain , Severe (7-10) Azithromycin (Zithromax/Ns) 500 mg in 250 mls @ 250 mls/hr IV Q24HR [facility] Stop: 10/18/21 10:59 Last Admin: 10/15/21 10:44 Dose: 250 mls/hr Ceftriaxone Sodium (Rocephin/Ns 2 Gm/100 Ml) 2 gm in 100 mls @ 200 mls/hr IV Q24HR [facility]; Protocol Stop: 10/19/21 10:29 Last Admin: 10/15/21 09:54 Dose: 200 mls/hr Insulin Human Lispro (Insulin Lispro 100 Unit/Ml) 0 unit SUB-Q Q6HR [facility]; Protocol Last Admin: 10/15/21 13:42 Dose: Not Given Methylprednisolone Sodium Succinate (Methylprednisolone Sod Succinate 40 Mg/1 Ml Inj) 60 mg IV Q8HR [facility] Last Admin: 10/15/21 13:46 Dose: 60 mg Metoclopramide HCl (Metoclopramide 10 Mg/2 Ml Inj) 5 mg IV Q6H PRN PRN Reason: Nausea And Vomiting Morphine Sulfate (Morphine 2 Mg/1 Ml Inj) 2 mg IV Q4H PRN PRN Reason: Pain, Moderate (4-6) Ondansetron HCl (Ondansetron 4 Mg/2 Ml Inj) 4 mg IV Q8H PRN PRN Reason: Nausea And Vomiting Pantoprazole Sodium (Pantoprazole 40 Mg Inj) 40 mg IV Q12H [facility] Last Admin: 10/15/21 13:46 Dose: 40 mg Sodium Chloride (Sodium Chloride 0.9% 10 Ml Flush Syringe) 10 ml IV BID [facility] Last Admin: 10/15/21 09:54 Dose: 10 ml Sodium Chloride (Sodium Chloride 0.9% 10 Ml Flush Syringe) 10 ml IV PRN PRN PRN Reason: LINE FLUSH Review of Systems - Review of Systems All systems: negative Constitutional: weight loss Eyes: no change in vision Ears, Nose, Throat: no decreased hearing Cardiovascular: no chest pain Gastrointestinal: nausea, vomiting, See HPI, no abdominal pain, no constipation, no melena, no hematochezia, no jaundice Musculoskeletal: no gait dysfunction Neurological: no paralysis, no weakness Psychiatric: no anxiety Endocrine: no cold intolerance Hematologic/Lymphatic: no easy bruising Allergic/Immunologic: no wheezing Exam - Constitutional Vital Signs: Temp Pulse Resp BP Pulse Ox 98.8 F 92 H 20 136/85 93 10/15/21 11:45 10/15/21 11:45 10/15/21 11:45 10/15/21 11:45 10/15/21 11:58 General appearance: no acute distress - EENT Eyes: EOM intact ENT: hearing intact - Neck Neck: supple - Respiratory Respiratory effort: normal - Cardiovascular Rhythm: regular Heart Sounds: Present: S1 & S2 - Gastrointestinal General gastrointestinal: Present: soft, non-tender, non-distended - Integumentary Integumentary: Present: clear, warm - Neurologic Neurological: alert and oriented x3 - Psychiatric Psychiatric: appropriate mood/affect - Labs CBC & Chem 7: 10/15/21 05:30 10/15/21 05:30 Lab Results: Laboratory Results - last 24 hr 10/14/21 10/15/21 10/15/21 22:33 05:30 05:30 WBC 13.5 H RBC 4.88 Hgb 13.3 Hct 41.9 MCV 86 MCH 27 L MCHC 32 RDW 15.0 Plt Count 160 Add Manual Diff Complete Total Counted 100 Seg Neutrophils % Marker Maker Seg Neuts % (Manual) 95.0 H Band Neutrophils % 0 Lymphocytes % (Manual) 2.0 L Reactive Lymphs % (Man) 0 Monocytes % (Manual) 3.0 Eosinophils % (Manual) 0 Basophils % (Manual) 0 Metamyelocytes % 0 Myelocytes % 0 Promyelocytes % 0 Blast Cells % 0 Nucleated RBC % Not Reportable Seg Neutrophils # Man 12.8 H Band Neutrophils # 0.0 Lymphocytes # (Manual) 0.3 L Abs React Lymphs (Man) 0.0 Monocytes # (Manual) 0.4 Eosinophils # (Manual) 0.0 Basophils # (Manual) 0.0 Metamyelocytes # 0.0 Myelocytes # 0.0 Promyelocytes # 0.0 Blast Cells # 0.0 WBC Morphology Not Reportable Hypersegmented Neuts Not Reportable Hyposegmented Neuts Not Reportable Hypogranular Neuts Not Reportable Smudge Cells Not Reportable Toxic Granulation Not Reportable Toxic Vacuolation Not Reportable Dohle Bodies Not Reportable Pelger-Huet Anomaly Not Reportable Matt Rods Not Reportable Platelet Estimate Consistent w auto Clumped Platelets Not Reportable Plt Clumps, EDTA Not Reportable Large Platelets Not Reportable Giant Platelets Not Reportable Platelet Satelliting Not Reportable Plt Morphology Comment Not Reportable RBC Morphology Normal Dimorphic RBCs Not Reportable Polychromasia Not Reportable Hypochromasia Not Reportable Poikilocytosis Not Reportable Anisocytosis Not Reportable Microcytosis Not Reportable Macrocytosis Not Reportable Spherocytes Not Reportable Pappenheimer Bodies Not Reportable Sickle Cells Not Reportable Target Cells Not Reportable Tear Drop Cells Not Reportable Ovalocytes Not Reportable Helmet Cells Not Reportable [place] Bodies Not Reportable Galien Rings Not Reportable Hays Cells Not Reportable Bite Cells Not Reportable Crenated Cell Not Reportable Elliptocytes Not Reportable Acanthocytes (Spur) Not Reportable Rouleaux Not Reportable Hemoglobin C Crystals Not Reportable Schistocytes Not Reportable Malaria parasites Not Reportable Arnoldo Bodies Not Reportable Hem Pathologist Commnt No Sodium 140 Potassium 4.5 D Chloride 100.1 Carbon Dioxide 25 Anion Gap 19 BUN 30 H Creatinine 2.3 H Estimated GFR 33 BUN/Creatinine Ratio 13 Glucose 279 H POC Glucose Hemoglobin A1c Calcium 9.4 Total Bilirubin 0.50 AST 49 H ALT 62 H Alkaline Phosphatase 88 NT-Pro-B Natriuret Pep 4751 H Total Protein 6.9 Albumin 3.9 Albumin/Globulin Ratio 1.3 TSH Free T4 Coronavirus (PCR) 10/15/21 10/15/21 10/15/21 05:30 06:58 09:10 WBC RBC Hgb Hct MCV MCH MCHC RDW Plt Count Add Manual Diff Total Counted Seg Neutrophils % Seg Neuts % (Manual) Band Neutrophils % Lymphocytes % (Manual) Reactive Lymphs % (Man) Monocytes % (Manual) Eosinophils % (Manual) Basophils % (Manual) Metamyelocytes % Myelocytes % Promyelocytes % Blast Cells % Nucleated RBC % Seg Neutrophils # Man Band Neutrophils # Lymphocytes # (Manual) Abs React Lymphs (Man) Monocytes # (Manual) Eosinophils # (Manual) Basophils # (Manual) Metamyelocytes # Myelocytes # Promyelocytes # Blast Cells # WBC Morphology Hypersegmented Neuts Hyposegmented Neuts Hypogranular Neuts Smudge Cells Toxic Granulation Toxic Vacuolation Dohle Bodies Pelger-Huet Anomaly Matt Rods Platelet Estimate Clumped Platelets Plt Clumps, EDTA Large Platelets Giant Platelets Platelet Satelliting Plt Morphology Comment RBC Morphology Dimorphic RBCs Polychromasia Hypochromasia Poikilocytosis Anisocytosis Microcytosis Macrocytosis Spherocytes Pappenheimer Bodies Sickle Cells Target Cells Tear Drop Cells Ovalocytes Helmet Cells [place] Bodies Galien Rings Nomi Cells Bite Cells Crenated Cell Elliptocytes Acanthocytes (Spur) Rouleaux Hemoglobin C Crystals Schistocytes Malaria parasites Arnoldo Bodies Hem Pathologist Commnt Sodium Potassium Chloride Carbon Dioxide Anion Gap BUN Creatinine Estimated GFR BUN/Creatinine Ratio Glucose POC Glucose 252 H Hemoglobin A1c 8.2 H Calcium Total Bilirubin AST ALT Alkaline Phosphatase NT-Pro-B Natriuret Pep Total Protein Albumin Albumin/Globulin Ratio TSH Free T4 Coronavirus (PCR) Negative 10/15/21 10/15/21 10/15/21 11:43 12:32 12:32 WBC RBC Hgb Hct MCV MCH MCHC RDW Plt Count Add Manual Diff Total Counted Seg Neutrophils % Seg Neuts % (Manual) Band Neutrophils % Lymphocytes % (Manual) Reactive Lymphs % (Man) Monocytes % (Manual) Eosinophils % (Manual) Basophils % (Manual) Metamyelocytes % Myelocytes % Promyelocytes % Blast Cells % Nucleated RBC % Seg Neutrophils # Man Band Neutrophils # Lymphocytes # (Manual) Abs React Lymphs (Man) Monocytes # (Manual) Eosinophils # (Manual) Basophils # (Manual) Metamyelocytes # Myelocytes # Promyelocytes # Blast Cells # WBC Morphology Hypersegmented Neuts Hyposegmented Neuts Hypogranular Neuts Smudge Cells Toxic Granulation Toxic Vacuolation Dohle Bodies Pelger-Huet Anomaly Matt Rods Platelet Estimate Clumped Platelets Plt Clumps, EDTA Large Platelets Giant Platelets Platelet Satelliting Plt Morphology Comment RBC Morphology Dimorphic RBCs Polychromasia Hypochromasia Poikilocytosis Anisocytosis Microcytosis Macrocytosis Spherocytes Pappenheimer Bodies Sickle Cells Target Cells Tear Drop Cells Ovalocytes Helmet Cells [place] Bodies Galien Rings Hays Cells Bite Cells Crenated Cell Elliptocytes Acanthocytes (Spur) Rouleaux Hemoglobin C Crystals Schistocytes Malaria parasites Arnoldo Bodies Hem Pathologist Commnt Sodium Potassium Chloride Carbon Dioxide Anion Gap BUN Creatinine Estimated GFR BUN/Creatinine Ratio Glucose POC Glucose 176 H Hemoglobin A1c Calcium Total Bilirubin AST ALT Alkaline Phosphatase NT-Pro-B Natriuret Pep Total Protein Albumin Albumin/Globulin Ratio TSH 1.020 Free T4 1.56 H Coronavirus (PCR) Assessment and Plan # Dysphagia - CT chest: no PE, diffuse thickening of the esophagus, small pleural effusion. scattered small nodes throughout the neck. - on-going symptoms of dysphagia to solids and liquids and regurgitation x 1 year along with weight loss. - no prior EGD - concern for esophagitis vs malignancy Rec - will plan for EGD tomorrow - PPI PO. - further recs post EGD - Patient Problems (1) Esophagitis Current Visit: Yes Status: Acute
--- NOTE | 2021-10-15 16:50 | Consultation ---
History of Present Illness - Reason for Consult Consult date: 10/15/21 acute renal failure Requesting physician: PADDY GONG - History of Present Illness 81-year-old male with a history of diabetes mellitus, hypertension admitted on account of shortness of breath with sore throat last. Patient has had difficulty swallowing and food getting stuck in his throat with regurgitation for about a year now. He also admits to difficulty swallowing liquids. He has had some weight loss. Denies any abdominal pain. CT scan of the neck showed diffuse thickening of the esophageal wall with scattered lymph nodes throughout the neck. Patient is scheduled for schedule esophagogastroduodenoscopy tomorrow. Patient also had CT angiogram of the chest which showed no evidence of pulmonary embolism. Patient was found to have BUN/creatinine of 20/1.6 mg/dL. It has now worsened to 30/2.3 mg/dL. Baseline kidney function is unknown. Patient admits to having urinary frequency, urgency and urge incontinence for several years. Has never really had work-up. Past History Past Medical History: diabetes (For about 40 years), hypertension (For about 40 years) Past Surgical History: Other (Left cataract extraction). 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 denies: smoking (Quit smoking 40 years ago), alcohol abuse (Quit drinking alcohol 40 years ago), prescription drug abuse, IV drug use Family history: no significant family history, CAD (Brother of heart disease.), other (Father was an alcoholic. Mother of old age.) Medications and Allergies Allergies Allergy/AdvReac Type Severity Reaction Status Date / Time No Known Allergies Allergy Verified 10/14/21 04:47 Home Medications Medication Instructions Recorded Confirmed Last Taken Type Lisinopril 10/15/21 10/14/21 History glipiZIDE 10/15/21 10/14/21 History Active Meds: Active Medications Acetaminophen (Acetaminophen 325 Mg Tab) 650 mg PO Q4H PRN PRN Reason: Pain MILD(1-3)/Fever >100.5/ROONEY Albuterol/Ipratropium (Ipratropium/Albuterol Sulfate 3 Ml Ampul.Neb) 1 ampul IH QIDRT [facility] Last Admin: 10/15/21 13:31 Dose: Not Given Enoxaparin Sodium (Enoxaparin 30 Mg/0.3 Ml Inj) 30 mg SUB-Q QDAY [facility] Last Admin: 10/15/21 09:54 Dose: 30 mg Hydromorphone HCl (Hydromorphone 1 Mg/1 Ml Inj) 0.5 mg IV Q3H PRN PRN Reason: Pain , Severe (7-10) Azithromycin (Zithromax/Ns) 500 mg in 250 mls @ 250 mls/hr IV Q24HR [facility] Stop: 10/18/21 10:59 Last Admin: 10/15/21 10:44 Dose: 250 mls/hr Ceftriaxone Sodium (Rocephin/Ns 2 Gm/100 Ml) 2 gm in 100 mls @ 200 mls/hr IV Q24HR [facility]; Protocol Stop: 10/19/21 10:29 Last Admin: 10/15/21 09:54 Dose: 200 mls/hr Insulin Human Lispro (Insulin Lispro 100 Unit/Ml) 0 unit SUB-Q Q6HR [facility]; Protocol Last Admin: 10/15/21 13:42 Dose: Not Given Methylprednisolone Sodium Succinate (Methylprednisolone Sod Succinate 40 Mg/1 Ml Inj) 60 mg IV Q8HR [facility] Last Admin: 10/15/21 13:46 Dose: 60 mg Metoclopramide HCl (Metoclopramide 10 Mg/2 Ml Inj) 5 mg IV Q6H PRN PRN Reason: Nausea And Vomiting Morphine Sulfate (Morphine 2 Mg/1 Ml Inj) 2 mg IV Q4H PRN PRN Reason: Pain, Moderate (4-6) Ondansetron HCl (Ondansetron 4 Mg/2 Ml Inj) 4 mg IV Q8H PRN PRN Reason: Nausea And Vomiting Pantoprazole Sodium (Pantoprazole 40 Mg Inj) 40 mg IV Q12H [facility] Last Admin: 10/15/21 13:46 Dose: 40 mg Sodium Chloride (Sodium Chloride 0.9% 10 Ml Flush Syringe) 10 ml IV BID [facility] Last Admin: 10/15/21 09:54 Dose: 10 ml Sodium Chloride (Sodium Chloride 0.9% 10 Ml Flush Syringe) 10 ml IV PRN PRN PRN Reason: LINE FLUSH Review of Systems All systems: negative (Constitutional: no fever or chills. No anorexia or weight loss. HEENT: Admits to sore throat but no sinus drainage no hearing or vision impairment . Cardiovascular: No chest pain, admits to shortness of breath, palpitations, lower extremity swelling or dizziness.) Respiratory: shortness of breath, dyspnea on exertion, no cough, no hemoptysis, no pleurisy Gastrointestinal: nausea, vomiting, no abdominal pain, no diarrhea, no constipation, no hematemesis, no coffee ground emesis, no melena, no nyla tochezia Genitourinary Male: urinary frequency, nocturia, incontinence (Urge incontinence), no dysuria, no hematuria, no flank pain Musculoskeletal: no low back pain, no hot joints Integumentary: no rash, no pruritis Neurological: no paralysis, no seizures, no syncope, no headaches Psychiatric: anxiety, no depression Endocrine: other (Blood sugar has been in the 200s lately), no cold intolerance, no heat intolerance Exam - Vital Signs Vital signs: Vital Signs Temp Pulse Resp BP Pulse Ox 98.6 F 93 H 20 208/116 100 10/14/21 03:15 10/14/21 03:15 10/14/21 03:15 10/14/21 03:15 10/14/21 03:15 - Physical Exam Narrative exam: Elderly -Malaysian male lying in bed in no acute distress HEENT: NCAT, right corneal opacity, arcus senilis, artificial lens left eye Neck: Supple, no venous distention CVS: S1S2 RRR with no murmur, rub or gallop Chest: Clear to auscultation Abdomen: Protuberant, soft, nontender, no organomegaly, bowel sounds are present Extremities: No edema Genitourinary deferred Skin warm and dry Neuro: Awake, alert no focal deficits Results - Lab Results 10/15/21 05:30 10/15/21 05:30 Most recent lab results Calcium 9.4 mg/dL (8.4-10.2) 10/15/21 05:30 Assessment and Plan - Patient Problems (1) GUILLAUME (acute kidney injury) Current Visit: Yes Status: Acute Plan to address problem: Acute kidney injury prerenal azotemia versus acute tubular necrosis secondary to volume depletion and radiocontrast exposure. Continue gentle volume repletion. Avoid exposure to nephrotoxins including NSAIDs and radiocontrast if possible. Get urine studies and kidney ultrasound. Follow-up electrolytes and renal function (2) Hypokalemia Current Visit: Yes Status: Acute Plan to address problem: Probably secondary to decreased oral intake. Supplement potassium and follow-up levels. (3) Hypertensive urgency Current Visit: Yes Status: Acute Plan to address problem: Blood pressure elevated on presentation but has not improved. Follow-up blood pressure on current medications (4) Esophagitis Current Visit: Yes Status: Acute Plan to address problem: Started on proton pump inhibitor per GI. Follow-up EGD (5) Dysphagia Current Visit: Yes Status: Acute Plan to address problem: Esophagitis versus malignancy. For esophagogastroduodenoscopy per card maker in the morning (6) COPD (chronic obstructive pulmonary disease) Current Visit: Yes Status: Acute Plan to address problem: Continue management by primary attending (7) SIRS (systemic inflammatory response syndrome) Current Visit: Yes Status: Acute Plan to address problem: Follow-up cultures. (8) T2DM (type 2 diabetes mellitus) Current Visit: Yes Status: Chronic Qualifiers: Diabetes mellitus usp insulin use: unspecified usp insulin use status Plan to address problem: Blood sugar management by primary attending
[2021-10-16] MEDS: PANTOPRAZOLE 40 MG INJ IV SCH ×3 (00:26→22:49)
[2021-10-16] MEDS: INSULIN LISPRO 100 UNIT/ML SUB-Q SCH ×3 (00:26→19:47)
[2021-10-16 00:43] LABS: Bacteria,Urine 2+ /HPF (Negative); Bilirubin,Urine NEG (Negative); Blood,Urine NEG (Negative); Color,Urine Yellow (Yellow); Hyaline Casts,Urine 4 /LPF; Mucus,Urine FEW /HPF; Urobilinogen,Urine < 2.0 mg/dL (<2.0)
[2021-10-16] MEDS: methylPREDNISolone Sod Succinate 40 MG/1 ML INJ IV SCH (06:14)
[2021-10-16 08:51] LABS: Calcium 8.9 mg/dL (8.4-10.2)
[2021-10-16] MEDS: IPRATROPIUM/ALBUTEROL SULFATE 3 ML AMPUL.NEB IH SCH (09:29)
[2021-10-16] MEDS ORDERED: ALBUTEROL 2.5 MG/3 ML NEBU IH PRN (09:33)
--- NOTE | 2021-10-16 11:13 | Ultrasound Report ---
ULTRASOUND THYROID INDICATION / CLINICAL INFORMATION: thyroid nodules. COMPARISON: None available. FINDINGS: RIGHT LOBE: Size = 3.5 x 1.6 x 1.5 cm. - Echogenicity: Normal. - Vascularity: Normal. - Nodules < 1 cm: None. - Nodules >= 1 cm or Suspicious Nodules: None. LEFT LOBE: Size = 3.0 x 1.2 x 1.1 cm. - Echogenicity: Normal. - Vascularity: Normal. - Nodules < 1 cm: There is an 8 mm slightly complex cyst with debris at the inferior pole. - Nodules >= 1 cm or Suspicious Nodules: None. ISTHMUS: No significant abnormality. Thickness = 0.4 cm. - Nodules < 1 cm: None. - Nodules >= 1 cm or Suspicious Nodules: None. LYMPH NODES: No abnormal lymph nodes. PARATHYROID GLANDS: No abnormal parathyroid gland. ADDITIONAL FINDINGS: None. IMPRESSION: Subcentimeter slightly complex cyst at the inferior pole of the left thyroid lobe. Otherwise unremar kable exam. No suspicious thyroid lesion. Note: Nodule size based on mean (average) size of 3 dimensions. Note: Nodules < 1 cm do not typically require follow-up or FNA unless there are suspicious features ( GEN, 2015) ACR TI-RADS Thyroid Nodule Recommendations TI-RADS 1 (0 points) -- Benign. No FNA or follow-up. TI-RADS 2 (1-2 points) -- Not suspicious. No FNA or follow-up. TI-RADS 3 (3 points) -- Mildly suspicious. Follow up in 1 year if 1.5 cm. FNA if 2.5 cm. TI-RADS 4 (4-6 points) -- Moderately suspicious. Follow up in 1 year if 1.0 cm. FNA if 1.5 cm. TI-RADS 5 (7+ points) -- Highly suspicious. Follow up in 1 year if 0.5 cm. FNA if 1.0 cm. Signer Name: Ellis Delcid Jr, MD Signed: 10/16/2021 11:09 AM Workstation Name: [id number]
[2021-10-16] MEDS: cefTRIAXone/NS 2 GM/100 ML 2 GM/100 ML BAG IV SCH (11:28)
[2021-10-16] MEDS: ENOXAPARIN 30 MG/0.3 ML INJ SUB-Q SCH (11:29)
--- NOTE | 2021-10-16 11:56 | Progress Note ---
Assessment and Plan - Patient Problems (1) GUILLAUME (acute kidney injury) Current Visit: Yes Status: Acute Plan to address problem: Acute kidney injury prerenal azotemia versus acute tubular necrosis secondary to volume depletion and radiocontrast exposure. Continue gentle volume repletion. Avoid exposure to nephrotoxins including NSAIDs and radiocontrast if possible. Get urine studies and kidney ultrasound. Follow-up electrolytes and renal function (2) Hypokalemia Current Visit: Yes Status: Acute Plan to address problem: Probably secondary to decreased oral intake. K normalized with Supplement potassium (3) Hypertensive emergency Current Visit: Yes Status: Acute Plan to address problem: Blood pressure elevated on presentation but has improved. Follow-up blood pressure on current medications (4) Esophagitis Current Visit: Yes Status: Acute Plan to address problem: Started on proton pump inhibitor per GI. Follow-up EGD (5) Dysphagia Current Visit: Yes Status: Acute Plan to address problem: Esophagitis versus malignancy. For esophagogastroduodenoscopy per chargeback specialist (6) COPD (chronic obstructive pulmonary disease) Current Visit: Yes Status: Acute Plan to address problem: Continue management by primary attending (7) SIRS (systemic inflammatory response syndrome) Current Visit: Yes Status: Acute Plan to address problem: Follow-up cultures (8) T2DM (type 2 diabetes mellitus) Current Visit: Yes Status: Chronic Qualifiers: Diabetes mellitus [employer] professional insulin use: unspecified penitentiary insulin use status Plan to address problem: Blood sugar management by primary attending Subjective Date of service: 10/16/21 Principal diagnosis: GUILLAUME Interval history: Patient is awake, alert, in no acute respiratory distress Objective - Vital Signs Vital signs: Vital Signs - 12hr 10/16/21 10/16/21 10/16/21 05:42 09:31 09:39 Temperature 97.7 F Pulse Rate 83 Pulse Rate [ 82 Bilateral Throughout] Respiratory 18 Rate Respiratory 18 Rate [Bilateral Throughout] Blood Pressure 164/90 O2 Sat by Pulse 97 98 Oximetry - General Appearance General appearance: well-developed, appears stated age EENT: ATNC, PERRL, mucous membranes moist Neck: no JVD Respiratory: Present: Clear to Ascultation Cardiology: regular, S1S2 Gastrointestinal: normoactive bowel sounds Integumentary: no rash Neurologic: no focal deficit, alert and oriented x3, strength 5/5, CN 3-12 intact - Lab 10/15/21 05:30 10/16/21 07:55 Most recent lab results Calcium 8.9 mg/dL (8.4-10.2) 10/16/21 07:55 Phosphorus 3.90 mg/dL (2.5-4.5) 10/16/21 07:55 Magnesium 1.80 mg/dL (1.7-2.3) 10/16/21 07:55 Medications & Allergies - Medications Allergies/Adverse Reactions: Allergies No Known Allergies Allergy (Verified 10/14/21 04:47) Home Medications: Home Medications Medication Instructions Recorded Confirmed Last Taken Type Lisinopril 10/15/21 10/14/21 History glipiZIDE 10/15/21 10/14/21 History Active Medications: Generic Name Dose Route Start Last Admin Trade Name Freq PRN Reason Stop Dose Admin Acetaminophen 650 mg 10/14/21 23:15 Acetaminophen 325 Mg Tab PO Q4H PRN Pain MILD(1-3)/Fever >100.5/ROONEY Albuterol 2.5 mg 10/16/21 09:33 Albuterol 2.5 Mg/3 Ml Nebu IH Q4HRT PRN Shortness Of Breath Enoxaparin Sodium 30 mg 10/15/21 10:00 10/16/21 11:29 Enoxaparin 30 Mg/0.3 Ml Inj SUB-Q 30 mg QDAY MARY Administration Hydromorphone HCl 0.5 mg 10/14/21 23:15 Hydromorphone 1 Mg/1 Ml Inj IV Q3H PRN Pain , Severe (7-10) Azithromycin 500 mg in 250 mls @ 250 mls/hr 10/14/21 23:45 10/15/21 10:44 Zithromax/Ns IV 10/18/21 10:59 250 mls/hr Q24HR MARY Administration Ceftriaxone Sodium 2 gm in 100 mls @ 200 mls/hr 10/15/21 10:00 10/16/21 11:28 Rocephin/Ns 2 Gm/100 Ml IV 10/19/21 10:29 200 mls/hr Q24HR MARY Administration Protocol Insulin Human Lispro 0 unit 10/15/21 06:00 10/16/21 00:26 Insulin Lispro 100 Unit/Ml SUB-Q 4 unit Q6HR MARY Administration Protocol Methylprednisolone Sodium Succinate 60 mg 10/14/21 23:45 10/16/21 06:14 Methylprednisolone Sod Succinate 40 Mg/1 Ml Inj IV 60 mg Q8HR MARY Administration Metoclopramide HCl 5 mg 10/14/21 23:15 Metoclopramide 10 Mg/2 Ml Inj IV Q6H PRN Nausea And Vomiting Morphine Sulfate 2 mg 10/14/21 23:15 Morphine 2 Mg/1 Ml Inj IV Q4H PRN Pain, Moderate (4-6) Ondansetron HCl 4 mg 10/14/21 23:15 Ondansetron 4 Mg/2 Ml Inj IV Q8H PRN Nausea And Vomiting Pantoprazole Sodium 40 mg 10/14/21 23:45 10/16/21 00:26 Pantoprazole 40 Mg Inj IV 40 mg Q12H MARY Administration Sodium Chloride 10 ml 10/15/21 10:00 10/16/21 11:29 Sodium Chloride 0.9% 10 Ml Flush Syringe IV 10 ml BID MARY Administration Sodium Chloride 10 ml 10/14/21 23:15 Sodium Chloride 0.9% 10 Ml Flush Syringe IV PRN PRN LINE FLUSH
--- NOTE | 2021-10-16 12:24 | Consultation ---
History of Present Illness Consult date: 10/16/21 Requesting physician: PADDY GONG Reason for consult: abnormal CXR/CT History of present illness: 81 y/o male complains of dysphagia. Prior stomach infection in the past. Daily hiccups, unknown for how long. 6-7 months of dysphagia. 30lb unitentional weight loss. Past History Past Medical History: diabetes (For about 40 years), hypertension (For about 40 years) Past Surgical History: Other (Left cataract extraction). 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 denies: smoking (Quit smoking 40 years ago), alcohol abuse (Quit drinking alcohol 40 years ago), prescription drug abuse, IV drug use Family history: no significant family history, CAD (Brother of heart disease.), other (Father was an alcoholic. Mother of old age.) Medications and Allergies Allergies Allergy/AdvReac Type Severity Reaction Status Date / Time No Known Allergies Allergy Verified 10/14/21 04:47 Home Medications Medication Instructions Recorded Confirmed Last Taken Type Lisinopril 10/15/21 10/14/21 History glipiZIDE 10/15/21 10/14/21 History Active Meds: Active Medications Acetaminophen (Acetaminophen 325 Mg Tab) 650 mg PO Q4H PRN PRN Reason: Pain MILD(1-3)/Fever >100.5/ROONEY Albuterol (Albuterol 2.5 Mg/3 Ml Nebu) 2.5 mg IH Q4HRT PRN PRN Reason: Shortness Of Breath Enoxaparin Sodium (Enoxaparin 30 Mg/0.3 Ml Inj) 30 mg SUB-Q QDAY [facility] Last Admin: 10/16/21 11:29 Dose: 30 mg Hydromorphone HCl (Hydromorphone 1 Mg/1 Ml Inj) 0.5 mg IV Q3H PRN PRN Reason: Pain , Severe (7-10) Azithromycin (Zithromax/Ns) 500 mg in 250 mls @ 250 mls/hr IV Q24HR MARY Stop: 10/18/21 10:59 Last Admin: 10/15/21 10:44 Dose: 250 mls/hr Ceftriaxone Sodium (Rocephin/Ns 2 Gm/100 Ml) 2 gm in 100 mls @ 200 mls/hr IV Q24HR [facility]; Protocol Stop: 10/19/21 10:29 Last Admin: 10/16/21 11:28 Dose: 200 mls/hr Insulin Human Lispro (Insulin Lispro 100 Unit/Ml) 0 unit SUB-Q Q6HR [facility]; Protocol Last Admin: 10/16/21 00:26 Dose: 4 unit Methylprednisolone Sodium Succinate (Methylprednisolone Sod Succinate 40 Mg/1 Ml Inj) 60 mg IV Q8HR [facility] Last Admin: 10/16/21 06:14 Dose: 60 mg Metoclopramide HCl (Metoclopramide 10 Mg/2 Ml Inj) 5 mg IV Q6H PRN PRN Reason: Nausea And Vomiting Morphine Sulfate (Morphine 2 Mg/1 Ml Inj) 2 mg IV Q4H PRN PRN Reason: Pain, Moderate (4-6) Ondansetron HCl (Ondansetron 4 Mg/2 Ml Inj) 4 mg IV Q8H PRN PRN Reason: Nausea And Vomiting Pantoprazole Sodium (Pantoprazole 40 Mg Inj) 40 mg IV Q12H [facility] Last Admin: 10/16/21 00:26 Dose: 40 mg Sodium Chloride (Sodium Chloride 0.9% 10 Ml Flush Syringe) 10 ml IV BID [facility] Last Admin: 10/16/21 11:29 Dose: 10 ml Sodium Chloride (Sodium Chloride 0.9% 10 Ml Flush Syringe) 10 ml IV PRN PRN PRN Reason: LINE FLUSH Physical Examination Vital signs: Vital Signs Temp Pulse Resp BP Pulse Ox 98.6 F 93 H 20 208/116 100 10/14/21 03:15 10/14/21 03:15 10/14/21 03:15 10/14/21 03:15 10/14/21 03:15 Results - Laboratory Findings CBC and BMP: 10/15/21 05:30 10/16/21 07:55 PT/INR, D-dimer PT 13.9 Sec. (12.2-14.9) 10/14/21 04:21 INR 0.96 (0.87-1.13) 10/14/21 04:21 D-Dimer 473.24 ng/mlDDU (0-234) H 10/14/21 04:21 Abnormal lab findings: Abnormal Labs 10/14/21 10/14/21 10/14/21 04:21 04:21 04:21 WBC 12.6 H RBC 5.32 H Hct 45.7 H MCH Roosevelt % (Auto) 8.9 H Roosevelt # (Auto) 1.1 H Seg Neutrophils % 71.0 H Seg Neuts % (Manual) Lymphocytes % (Manual) Seg Neutrophils # 8.9 H Seg Neutrophils # Man Lymphocytes # (Manual) D-Dimer 473.24 H Potassium 3.5 L BUN Creatinine 1.6 H Glucose 233 H POC Glucose Hemoglobin A1c Lactic Acid AST ALT NT-Pro-B Natriuret Pep Free T4 10/14/21 10/14/21 10/14/21 04:21 05:43 22:33 WBC RBC Hct MCH Roosevelt % (Auto) Roosevelt # (Auto) Seg Neutrophils % Seg Neuts % (Manual) Lymphocytes % (Manual) Seg Neutrophils # Seg Neutrophils # Man Lymphocytes # (Manual) D-Dimer Potassium BUN Creatinine Glucose POC Glucose Hemoglobin A1c Lactic Acid 2.90 H* 4.10 H* AST ALT NT-Pro-B Natriuret Pep 4751 H Free T4 10/15/21 10/15/21 10/15/21 05:30 05:30 05:30 WBC 13.5 H RBC Hct MCH 27 L Roosevelt % (Auto) Roosevelt # (Auto) Seg Neutrophils % Seg Neuts % (Manual) 95.0 H Lymphocytes % (Manual) 2.0 L Seg Neutrophils # Seg Neutrophils # Man 12.8 H Lymphocytes # (Manual) 0.3 L D-Dimer Potassium BUN 30 H Creatinine 2.3 H Glucose 279 H POC Glucose Hemoglobin A1c 8.2 H Lactic Acid AST 49 H ALT 62 H NT-Pro-B Natriuret Pep Free T4 10/15/21 10/15/21 10/15/21 06:58 11:43 12:32 WBC RBC Hct MCH Roosevelt % (Auto) Roosevelt # (Auto) Seg Neutrophils % Seg Neuts % (Manual) Lymphocytes % (Manual) Seg Neutrophils # Seg Neutrophils # Man Lymphocytes # (Manual) D-Dimer Potassium BUN Creatinine Glucose POC Glucose 252 H 176 H Hemoglobin A1c Lactic Acid AST ALT NT-Pro-B Natriuret Pep Free T4 1.56 H 10/15/21 10/15/21 10/16/21 16:24 21:48 07:23 WBC RBC Hct MCH Roosevelt % (Auto) Roosevelt # (Auto) Seg Neutrophils % Seg Neuts % (Manual) Lymphocytes % (Manual) Seg Neutrophils # Seg Neutrophils # Man Lymphocytes # (Manual) D-Dimer Potassium BUN Creatinine Glucose POC Glucose 215 H 238 H 183 H Hemoglobin A1c Lactic Acid AST ALT NT-Pro-B Natriuret Pep Free T4 10/16/21 10/16/21 07:55 11:44 WBC RBC Hct MCH Roosevelt % (Auto) Roosevelt # (Auto) Seg Neutrophils % Seg Neuts % (Manual) Lymphocytes % (Manual) Seg Neutrophils # Seg Neutrophils # Man Lymphocytes # (Manual) D-Dimer Potassium BUN 43 H Creatinine 2.4 H Glucose 208 H POC Glucose 234 H Hemoglobin A1c Lactic Acid AST ALT NT-Pro-B Natriuret Pep Free T4 Assessment and Plan 81 y/o male with abnormal head neck and upper chest CT 1. No distinct evidence of trachea involvement or concern of tracheal compromise based on imaging. 2. Patient satting fine on room air, no pulmonary issues current 3. Does complain of dyspnea, EF is 20-25% and has severe pulmonary HTN, this should be treated. Most likely Type 2 pulm HTN as he is a life long nonsmoker and no evidence of emphysema on CT
[2021-10-16] MEDS: AZITHROMYCIN/NS 500 MG/250 ML 500 MG/250 ML BAG IV SCH (12:43)
--- NOTE | 2021-10-16 13:22 | Progress Note ---
Assessment and Plan Assessment and plan: 81-year-old -[place] male with history of hypertension and diabetes comes in for shortness of breath and sore throat. Started around 10 PM last night. No nausea or vomiting. No fever or chills. Shortness of breath at rest. No chest pain. No back pain. No travel or sick contacts. Patient has some difficulty swallowing and some pain with swallowing. Initial work-up chest x-ray next Lungs mild increased pulmonary vascularity with interstitial prominence and bilateral lungs. No pneumothorax. Findings No prevertebral soft tissue swelling. The airway appears open. There is shift of the trachea to the left in the upper neck which may be related to degenerative changes or thyroid swelling Soft tissue of the neck No foreign body. Distal trachea to the left Could be secondary to thyroid mass Nonspecific Chest CT No CT evidence of pulmonary embolism Diffuse thickening of the esophageal wall throughout Clinical correlation quality recommended with GI Small pleural effusion Neck CT diffuse esophageal wall thickening throughout. Follow-up with GI as recommended Scattered small nodes throughout the neck however no dominant adenopathy or dominant mass. Symptoms asymmetric soft tissue inflammation surrounding the area in the region of the vocal folds pyriform sinuses and vallecula. SIRS (systemic inflammatory response syndrome) Hypertensive emergency GUILLAUME (acute kidney injury) Secondary to vasomotor nephropathy Esophagitis COPD (chronic obstructive pulmonary disease) T2DM (type 2 diabetes mellitus) Elevated brain natriuretic peptide (BNP) level Person under investigation for COVID-19 Elevated D-dimer Plan 10/15: Clinically patient has functional improvement room air sat is 100%. Nevertheless exertion has not been checked. Imaging studies is negative for pulmonary embolism. We will obtain a Doppler of the lower extremities and also obtain nephrology consultation due to worsening renal function which could be secondary to contrast-induced nephropathy versus mild underlying chronic stable congestive heart failure. Will await echocardiogram report at this time. We will also adjust insulin for better management Will obtain pulmonary consultation to further evaluate narrowing of the trachea possible extrinsic versus intrinsic compression. Patient initiated on valsartan and amlodipine and Coreg IV hydralazine 10 mg every 3 hours as needed GI evaluation Protonix 40 mg IV twice a day Patient initiated on IV antibiotics Rocephin and, Zithromax and IV Solu-Medrol May be discontinued in 24 to 48 hours depending on patient's response 10/16: Continue supportive care, could not get EGD today due to oral intake, reinforced NPO education with the patient. Pulmonary evaluated the patient, no Tracheal narrowing noted. Patient can be discharged following EGD. Awaiting Thyroid ultrasound, noted mildly elevated Free T4. Continue gentle hydration-Nephrology following Continue insulin therapy No PE, NO COVID, Inflammatory markers elevated Lactic acid is elevated Rule out COVID Accu-Cheks every 6 and coverage Echocardiogram for ejection fraction and valve function Plan discussed with the patient and with the nurse at bedside. History Interval history: Patient seen and examined, clinically improving. No difficulty swallowing, remains off room air. Does not want me speaking to family. Hospitalist Physical - Physical exam Narrative exam: General appearance: Present: no acute distress, cachetic, temporal wasting noted. - EENT Eyes: Present: PERRL ENT: hearing intact, clear oral mucosa - Neck Neck: Present: supple, normal ROM - Respiratory Respiratory effort: normal Respiratory: bilateral: mild rhonchi, No wheezing - Cardiovascular Heart rate: 78 Rhythm: regular Heart Sounds: Present: S1 & S2. Absent: rub, click - Extremities Extremities: pulses symmetrical, No edema Peripheral Pulses: within normal limits - Abdominal General gastrointestinal: Present: soft, non-tender, non-distended, normal bowel sounds Male genitourinary: Present: normal - Integumentary Integumentary: Present: clear, warm, dry - Musculoskeletal Musculoskeletal: gait normal, strength equal bilaterally - Psychiatric Psychiatric: appropriate mood/affect, intact judgment & insight - Neurologic Neurologic: CNII-XII intact, moves all extremities - Allied Health Allied health notes reviewed: nursing, case management - Constitutional Vitals: Temp Pulse Resp BP Pulse Ox 97.7 F 82 18 164/90 98 10/16/21 05:42 10/16/21 09:39 10/16/21 09:39 10/16/21 05:42 10/16/21 09:31 General appearance: Present: no acute distress, cachectic HEART Score - HEART Score Troponin: Troponin T 0.011 ng/mL (0.00-0.029) 10/14/21 04:21 Results - Labs CBC & Chem 7: 10/15/21 05:30 10/16/21 07:55 Labs: Laboratory Last Values WBC 13.5 K/mm3 (4.5-11.0) H 10/15/21 05:30 RBC 4.88 M/mm3 (3.65-5.03) 10/15/21 05:30 Hgb 13.3 gm/dl (11.8-15.2) 10/15/21 05:30 Hct 41.9 % (35.5-45.6) 10/15/21 05:30 MCV 86 fl (84-94) 10/15/21 05:30 MCH 27 pg (28-32) L 10/15/21 05:30 MCHC 32 % (32-34) 10/15/21 05:30 RDW 15.0 % (13.2-15.2) 10/15/21 05:30 Plt Count 160 K/mm3 (140-440) 10/15/21 05:30 Lymph % (Auto) 17.6 % (13.4-35.0) 10/14/21 04:21 [place] % (Auto) 8.9 % (0.0-7.3) H 10/14/21 04:21 Eos % (Auto) 2.0 % (0.0-4.3) 10/14/21 04:21 Baso % (Auto) 0.5 % (0.0-1.8) 10/14/21 04:21 Lymph # (Auto) 2.2 K/mm3 (1.2-5.4) 10/14/21 04:21 [place] # (Auto) 1.1 K/mm3 (0.0-0.8) H 10/14/21 04:21 Eos # (Auto) 0.3 K/mm3 (0.0-0.4) 10/14/21 04:21 Baso # (Auto) 0.1 K/mm3 (0.0-0.1) 10/14/21 04:21 Add Manual Diff Complete 10/15/21 05:30 Total Counted 100 10/15/21 05:30 Seg Neutrophils % [employer] 10/15/21 05:30 Seg Neuts % (Manual) 95.0 % (40.0-70.0) H 10/15/21 05:30 Band Neutrophils % 0 % 10/15/21 05:30 Lymphocytes % (Manual) 2.0 % (13.4-35.0) L 10/15/21 05:30 Reactive Lymphs % (Man) 0 % 10/15/21 05:30 Monocytes % (Manual) 3.0 % (0.0-7.3) 10/15/21 05:30 Eosinophils % (Manual) 0 % (0.0-4.3) 10/15/21 05:30 Basophils % (Manual) 0 % (0.0-1.8) 10/15/21 05:30 Metamyelocytes % 0 % 10/15/21 05:30 Myelocytes % 0 % 10/15/21 05:30 Promyelocytes % 0 % 10/15/21 05:30 Blast Cells % 0 % 10/15/21 05:30 Nucleated RBC % Not Reportable 10/15/21 05:30 Seg Neutrophils # 8.9 K/mm3 (1.8-7.7) H 10/14/21 04:21 Seg Neutrophils # Man 12.8 K/mm3 (1.8-7.7) H 10/15/21 05:30 Band Neutrophils # 0.0 K/mm3 10/15/21 05:30 Lymphocytes # (Manual) 0.3 K/mm3 (1.2-5.4) L 10/15/21 05:30 Abs React Lymphs (Man) 0.0 K/mm3 10/15/21 05:30 Monocytes # (Manual) 0.4 K/mm3 (0.0-0.8) 10/15/21 05:30 Eosinophils # (Manual) 0.0 K/mm3 (0.0-0.4) 10/15/21 05:30 Basophils # (Manual) 0.0 K/mm3 (0.0-0.1) 10/15/21 05:30 Metamyelocytes # 0.0 K/mm3 10/15/21 05:30 Myelocytes # 0.0 K/mm3 10/15/21 05:30 Promyelocytes # 0.0 K/mm3 10/15/21 05:30 Blast Cells # 0.0 K/mm3 10/15/21 05:30 WBC Morphology Not Reportable 10/15/21 05:30 Hypersegmented Neuts Not Reportable 10/15/21 05:30 Hyposegmented Neuts Not Reportable 10/15/21 05:30 Hypogranular Neuts Not Reportable 10/15/21 05:30 Smudge Cells Not Reportable 10/15/21 05:30 Toxic Granulation Not Reportable 10/15/21 05:30 Toxic Vacuolation Not Reportable 10/15/21 05:30 Dohle Bodies Not Reportable 10/15/21 05:30 Pelger-Huet Anomaly Not Reportable 10/15/21 05:30 Matt Rods Not Reportable 10/15/21 05:30 Platelet Estimate Consistent w auto 10/15/21 05:30 Clumped Platelets Not Reportable 10/15/21 05:30 Plt Clumps, EDTA Not Reportable 10/15/21 05:30 Large Platelets Not Reportable 10/15/21 05:30 Giant Platelets Not Reportable 10/15/21 05:30 Platelet Satelliting Not Reportable 10/15/21 05:30 Plt Morphology Comment Not Reportable 10/15/21 05:30 RBC Morphology Normal 10/15/21 05:30 Dimorphic RBCs Not Reportable 10/15/21 05:30 Polychromasia Not Reportable 10/15/21 05:30 Hypochromasia Not Reportable 10/15/21 05:30 Poikilocytosis Not Reportable 10/15/21 05:30 Anisocytosis Not Reportable 10/15/21 05:30 Microcytosis Not Reportable 10/15/21 05:30 Macrocytosis Not Reportable 10/15/21 05:30 Spherocytes Not Reportable 10/15/21 05:30 Pappenheimer Bodies Not Reportable 10/15/21 05:30 Sickle Cells Not Reportable 10/15/21 05:30 Target Cells Not Reportable 10/15/21 05:30 Tear Drop Cells Not Reportable 10/15/21 05:30 Ovalocytes Not Reportable 10/15/21 05:30 Helmet Cells Not Reportable 10/15/21 05:30 [place] Bodies Not Reportable 10/15/21 05:30 [place] Rings Not Reportable 10/15/21 05:30 [place] Cells Not Reportable 10/15/21 05:30 Bite Cells Not Reportable 10/15/21 05:30 Crenated Cell Not Reportable 10/15/21 05:30 Elliptocytes Not Reportable 10/15/21 05:30 Acanthocytes (Spur) Not Reportable 10/15/21 05:30 Rouleaux Not Reportable 10/15/21 05:30 Hemoglobin C Crystals Not Reportable 10/15/21 05:30 Schistocytes Not Reportable 10/15/21 05:30 Malaria parasites Not Reportable 10/15/21 05:30 [place] Bodies Not Reportable 10/15/21 05:30 Hem Pathologist Commnt No 10/15/21 05:30 PT 13.9 Sec. (12.2-14.9) 10/14/21 04:21 INR 0.96 (0.87-1.13) 10/14/21 04:21 D-Dimer 473.24 ng/mlDDU (0-234) H 10/14/21 04:21 Sodium 141 mmol/L (137-145) 10/16/21 07:55 Potassium 4.3 mmol/L (3.6-5.0) 10/16/21 07:55 Chloride 105.2 mmol/L (98-107) 10/16/21 07:55 Carbon Dioxide 23 mmol/L (22-30) 10/16/21 07:55 Anion Gap 17 mmol/L 10/16/21 07:55 BUN 43 mg/dL (9-20) H 10/16/21 07:55 Creatinine 2.4 mg/dL (0.8-1.3) H 10/16/21 07:55 Estimated GFR 32 ml/min 10/16/21 07:55 BUN/Creatinine Ratio 18 % 10/16/21 07:55 Glucose 208 mg/dL (75-100) H 10/16/21 07:55 POC Glucose 234 mg/dL (70-105) H 10/16/21 11:44 Hemoglobin A1c 8.2 % (4-6) H 10/15/21 05:30 Lactic Acid 4.10 mmol/L (0.7-2.0) H* 10/14/21 05:43 Calcium 8.9 mg/dL (8.4-10.2) 10/16/21 07:55 Phosphorus 3.90 mg/dL (2.5-4.5) 10/16/21 07:55 Magnesium 1.80 mg/dL (1.7-2.3) 10/16/21 07:55 Total Bilirubin 0.50 mg/dL (0.1-1.2) 10/15/21 05:30 AST 49 units/L (5-40) H 10/15/21 05:30 ALT 62 units/L (7-56) H 10/15/21 05:30 Alkaline Phosphatase 88 units/L (35-129) 10/15/21 05:30 Troponin T 0.011 ng/mL (0.00-0.029) 10/14/21 04:21 NT-Pro-B Natriuret Pep 4751 pg/mL (0-900) H 10/14/21 22:33 Total Protein 6.9 g/dL (6.3-8.2) 10/15/21 05:30 Albumin 3.9 g/dL (3.9-5) 10/15/21 05:30 Albumin/Globulin Ratio 1.3 % 10/15/21 05:30 TSH 1.020 mlU/mL (0.270-4.200) 10/15/21 12:32 Free T4 1.56 ng/dL (0.76-1.46) H 10/15/21 12:32 Urine Color Yellow (Yellow) 10/15/21 23:10 Urine Turbidity Slightly-cloudy (Clear) 10/15/21 23:10 Urine pH 5.0 (5.0-7.0) 10/15/21 23:10 Ur Specific [place] 1.029 (1.003-1.030) 10/15/21 23:10 Urine Protein 100 mg/dl mg/dL (Negative) 10/15/21 23:10 Urine Glucose (UA) >=500 mg/dL (Negative) 10/15/21 23:10 Urine Ketones Tr mg/dL (Negative) 10/15/21 23:10 Urine Blood Neg (Negative) 10/15/21 23:10 Urine Nitrite Neg (Negative) 10/15/21 23:10 Urine Bilirubin Neg (Negative) 10/15/21 23:10 Urine Urobilinogen < 2.0 mg/dL (<2.0) 10/15/21 23:10 Ur Leukocyte Esterase Neg (Negative) 10/15/21 23:10 Urine WBC (Auto) 3.0 /HPF (0.0-6.0) 10/15/21 23:10 Urine RBC (Auto) 1.0 /HPF (0.0-6.0) 10/15/21 23:10 U Epithel Cells (Auto) 3.0 /HPF (0-13.0) 10/15/21 23:10 Urine Bacteria (Auto) 2+ /HPF (Negative) 10/15/21 23:10 Hyaline Casts 4 /LPF 10/15/21 23:10 Urine Mucus Few /HPF 10/15/21 23:10 Coronavirus (PCR) Negative (Negative) 10/15/21 09:10 [place]/IV: Voiding Method Urinal Active Medications - Current Medications Current Medications: Generic Name Dose Route Start Last Admin Trade Name Freq PRN Reason Stop Dose Admin Acetaminophen 650 mg 10/14/21 23:15 Acetaminophen 325 Mg Tab PO Q4H PRN Pain MILD(1-3)/Fever >100.5/ROONEY Albuterol 2.5 mg 10/16/21 09:33 Albuterol 2.5 Mg/3 Ml Nebu IH Q4HRT PRN Shortness Of Breath Enoxaparin Sodium 30 mg 10/15/21 10:00 10/16/21 11:29 Enoxaparin 30 Mg/0.3 Ml Inj SUB-Q 30 mg QDAY MARY Administration Hydromorphone HCl 0.5 mg 10/14/21 23:15 Hydromorphone 1 Mg/1 Ml Inj IV Q3H PRN Pain , Severe (7-10) Azithromycin 500 mg in 250 mls @ 250 mls/hr 10/14/21 23:45 10/16/21 12:43 Zithromax/Ns IV 10/18/21 10:59 250 mls/hr Q24HR MARY Administration Ceftriaxone Sodium 2 gm in 100 mls @ 200 mls/hr 10/15/21 10:00 10/16/21 11:28 Rocephin/Ns 2 Gm/100 Ml IV 10/19/21 10:29 200 mls/hr Q24HR MARY Administration Protocol Insulin Human Lispro 0 unit 10/15/21 06:00 10/16/21 12:32 Insulin Lispro 100 Unit/Ml SUB-Q 4 unit Q6HR MARY Administration Protocol Methylprednisolone Sodium Succinate 60 mg 10/14/21 23:45 10/16/21 06:14 Methylprednisolone Sod Succinate 40 Mg/1 Ml Inj IV 60 mg Q8HR MARY Administration Metoclopramide HCl 5 mg 10/14/21 23:15 Metoclopramide 10 Mg/2 Ml Inj IV Q6H PRN Nausea And Vomiting Morphine Sulfate 2 mg 10/14/21 23:15 Morphine 2 Mg/1 Ml Inj IV Q4H PRN Pain, Moderate (4-6) Ondansetron HCl 4 mg 10/14/21 23:15 Ondansetron 4 Mg/2 Ml Inj IV Q8H PRN Nausea And Vomiting Pantoprazole Sodium 40 mg 10/14/21 23:45 10/16/21 12:31 Pantoprazole 40 Mg Inj IV 40 mg Q12H MARY Administration Sodium Chloride 10 ml 10/15/21 10:00 10/16/21 11:29 Sodium Chloride 0.9% 10 Ml Flush Syringe IV 10 ml BID MARY Administration Sodium Chloride 10 ml 10/14/21 23:15 Sodium Chloride 0.9% 10 Ml Flush Syringe IV PRN PRN LINE FLUSH Nutrition/Malnutrition Assess - Dietary Evaluation Nutrition/Malnutrition Findings: Nutrition Notes Start: 10/15/21 14:49 Freq: Status: Active Protocol: Document 10/15/21 14:49 RS (Rec: 10/15/21 14:57 RS [id number]) Nutrition Notes Need for Assessment generated from: investigator fraud Initial or Follow up Brief Note Current Diagnosis Acute Kidney Injury,Coronary Artery Disease,Diabetes, Hypertension Other Pertinent Diagnosis SIRS Current Diet NPO Labs/Tests BUN: 30 Cr: 2.3 Glu: 279 NT-Pro-B: 4751 Pertinent Medications Solu-Medrol Height 5 ft 5 in Weight 58.967 kg Monitor Body Weight (kg) 61.81 BMI 21.6 Weight Status Appropriate Subjective/Other Information loan 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 Shaggy Score 20. Pt currently NPO d/t pending consultation with GI MD. Is patient on ventilator? No Is Patient Ambulatory and/or Out of Bed No REE-([facility]-confined to bed) 1478.832 Kcal/Kg value to use for calculation 30 Approximate Energy Requirements Using 1769 kcal/Kg Calculation Used for Recommendations Kcal/kg Additional Notes Pro needs: 59-71g/day Fluid: 1mL/kcal Nutrition Intervention Goal #1 Diet advancement as feasible Follow-Up By: 10/17/21 Additional Comments F/U for diet advancement, appetite levels, wt hx
[2021-10-16] MEDS ORDERED: SODIUM CHLORIDE 0.9% 50 ML IVPB IV PRN (14:42)
--- NOTE | 2021-10-16 15:25 | Gastroenterology Progress Note ---
Assessment and Plan # Dysphagia - CT chest: no PE, diffuse thickening of the esophagus, small pleural effusion. scattered small nodes throughout the neck. - on-going symptoms of dysphagia to solids and liquids and regurgitation x 1 year along with weight loss. - no prior EGD - concern for esophagitis vs malignancy Rec - will reschedule EGD for tomorrow. will need cardiac risk stratification given TTE findings of reduced EF 34-40% and pulm HTN. - PPI PO. - NPO MN. - discussed with IMS. - Patient Problems (1) Esophagitis Current Visit: Yes Status: Acute Subjective Date of service: 10/16/21 Principal diagnosis: GUILLAUME Interval history: Patient was planned for EGD today but had orange juice this morning. Has been on clear liquids and tolerating it well. No choking or regurgitation. No chest pain. Objective - Constitutional Vitals: Temp Pulse Resp BP Pulse Ox 97.9 F 84 18 146/72 98 10/16/21 11:26 10/16/21 11:26 10/16/21 11:26 10/16/21 11:26 10/16/21 11:26 - EENT Eyes: EOM intact ENT: hearing intact - Respiratory Respiratory effort: normal - Cardiovascular Rhythm: regular Heart Sounds: Present: S1 & S2 - Gastrointestinal General gastrointestinal: Present: soft, non-tender, non-distended - Integumentary Integumentary: Present: clear, warm - Neurologic Neurological: alert and oriented x3 - Psychiatric Psychiatric: appropriate mood/affect - Labs CBC & Chem 7: 10/15/21 05:30 10/16/21 07:55 Labs: Laboratory Results - last 24 hr 10/15/21 10/15/21 10/15/21 16:24 21:48 23:10 Sodium Potassium Chloride Carbon Dioxide Anion Gap BUN Creatinine Estimated GFR BUN/Creatinine Ratio Glucose POC Glucose 215 H 238 H Calcium Phosphorus Magnesium Urine Color Yellow Urine Turbidity Slightly-cloudy Urine pH 5.0 Ur Specific [place] 1.029 Urine Protein 100 mg/dl Urine Glucose (UA) >=500 Urine Ketones Tr Urine Blood Neg Urine Nitrite Neg Urine Bilirubin Neg Urine Urobilinogen < 2.0 Ur Leukocyte Esterase Neg Urine WBC (Auto) 3.0 Urine RBC (Auto) 1.0 U Epithel Cells (Auto) 3.0 Urine Bacteria (Auto) 2+ Hyaline Casts 4 Urine Mucus Few 10/16/21 10/16/21 10/16/21 07:23 07:55 07:55 Sodium 141 Potassium 4.3 Chloride 105.2 Carbon Dioxide 23 Anion Gap 17 BUN 43 H Creatinine 2.4 H Estimated GFR 32 BUN/Creatinine Ratio 18 Glucose 208 H POC Glucose 183 H Calcium 8.9 Phosphorus 3.90 Magnesium 1.80 Urine Color Urine Turbidity Urine pH Ur Specific [place] Urine Protein Urine Glucose (UA) Urine Ketones Urine Blood Urine Nitrite Urine Bilirubin Urine Urobilinogen Ur Leukocyte Esterase Urine WBC (Auto) Urine RBC (Auto) U Epithel Cells (Auto) Urine Bacteria (Auto) Hyaline Casts Urine Mucus 10/16/21 11:44 Sodium Potassium Chloride Carbon Dioxide Anion Gap BUN Creatinine Estimated GFR BUN/Creatinine Ratio Glucose POC Glucose 234 H Calcium Phosphorus Magnesium Urine Color Urine Turbidity Urine pH Ur Specific [place] Urine Protein Urine Glucose (UA) Urine Ketones Urine Blood Urine Nitrite Urine Bilirubin Urine Urobilinogen Ur Leukocyte Esterase Urine WBC (Auto) Urine RBC (Auto) U Epithel Cells (Auto) Urine Bacteria (Auto) Hyaline Casts Urine Mucus
--- NOTE | 2021-10-16 17:07 | Consultation ---
History of Present Illness Consult date: 10/16/21 Requesting physician: JERRELL BRENNER Consult reason: other (cardioyopathy, clearance) History of present illness: Patient is an 81 y/o male with a pmhx of HTN and DMwho came to [facility] with a complaint of worsening dysphagia for 4-5 days prior to admission. Patient reports that he has had food getting stuck and regurgitating food for almost a year. Patient also reports difficulty swallowing liquids. Hospital course shows patient to have esophagitis. At time of interview patient denies chest pain, SOB, nausea, vomiting, BLE, or orthorpnea. Cardiology is consulted for clearance for EDG and new cardiomyopathy. Patient is previously unknown to our practice Past History Past Medical History: diabetes (For about 40 years), hypertension (For about 40 years) Past Surgical History: Other (Left cataract extraction). 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 denies: smoking (Quit smoking 40 years ago), alcohol abuse (Quit drinking alcohol 40 years ago), prescription drug abuse, IV drug use Family history: no significant family history, CAD (Brother of heart disease.), other (Father was an alcoholic. Mother of old age.) Medications and Allergies Allergies Allergy/AdvReac Type Severity Reaction Status Date / Time No Known Allergies Allergy Verified 10/14/21 04:47 Home Medications Medication Instructions Recorded Confirmed Last Taken Type Lisinopril 10/15/21 10/14/21 History glipiZIDE 10/15/21 10/14/21 History Active Meds: Active Medications Acetaminophen (Acetaminophen 325 Mg Tab) 650 mg PO Q4H PRN PRN Reason: Pain MILD(1-3)/Fever >100.5/ROONEY Albuterol (Albuterol 2.5 Mg/3 Ml Nebu) 2.5 mg IH Q4HRT PRN PRN Reason: Shortness Of Breath Enoxaparin Sodium (Enoxaparin 30 Mg/0.3 Ml Inj) 30 mg SUB-Q QDAY MARY Last Admin: 10/16/21 11:29 Dose: 30 mg Hydromorphone HCl (Hydromorphone 1 Mg/1 Ml Inj) 0.5 mg IV Q3H PRN PRN Reason: Pain , Severe (7-10) Azithromycin (Zithromax/Ns) 500 mg in 250 mls @ 250 mls/hr IV Q24HR [facility] Stop: 10/18/21 10:59 Last Admin: 10/16/21 12:43 Dose: 250 mls/hr Ceftriaxone Sodium (Rocephin/Ns 2 Gm/100 Ml) 2 gm in 100 mls @ 200 mls/hr IV Q24HR [facility]; Protocol Stop: 10/19/21 10:29 Last Admin: 10/16/21 11:28 Dose: 200 mls/hr Insulin Human Lispro (Insulin Lispro 100 Unit/Ml) 0 unit SUB-Q Q6HR [facility]; Protocol Last Admin: 10/16/21 12:32 Dose: 4 unit Metoclopramide HCl (Metoclopramide 10 Mg/2 Ml Inj) 5 mg IV Q6H PRN PRN Reason: Nausea And Vomiting Morphine Sulfate (Morphine 2 Mg/1 Ml Inj) 2 mg IV Q4H PRN PRN Reason: Pain, Moderate (4-6) Ondansetron HCl (Ondansetron 4 Mg/2 Ml Inj) 4 mg IV Q8H PRN PRN Reason: Nausea And Vomiting Pantoprazole Sodium (Pantoprazole 40 Mg Inj) 40 mg IV Q12H [facility] Last Admin: 10/16/21 12:31 Dose: 40 mg Prednisone (Prednisone 20 Mg Tab) 20 mg PO QDAY [facility] Sodium Chloride (Sodium Chloride 0.9% 10 Ml Flush Syringe) 10 ml IV BID [facility] Last Admin: 10/16/21 11:29 Dose: 10 ml Sodium Chloride (Sodium Chloride 0.9% 50 Ml Ivpb) 10 ml IV PRN PRN PRN Reason: FLUSH Review of Systems Constitutional: weight loss, no fever, no chills, no sweats, no night sweats Ears, nose, mouth and throat: no nasal congestion, no nasal discharge, no sinus pressure, no sinus pain Cardiovascular: no chest pain, no orthopnea, no palpitations, no rapid/irregular heart beat, no shortness of breath, no leg edema Respiratory: no shortness of breath, no dyspnea on exertion Gastrointestinal: vomiting, indigestion, other (dyphagia, ), no nausea, no diarrhea Musculoskeletal: no neck stiffness, no neck pain, no shooting arm pain Integumentary: no rash, no pruritis, no redness Neurological: no head injury, no transient paralysis, no paralysis, no weakness Psychiatric: no anxiety, no memory loss Endocrine: no cold intolerance, no heat intolerance Hematologic/Lymphatic: no easy bruising, no easy bleeding Physical Examination Vital Signs Temp Pulse Resp BP Pulse Ox 98.6 F 93 H 20 208/116 100 10/14/21 03:15 10/14/21 03:15 10/14/21 03:15 10/14/21 03:15 10/14/21 03:15 General appearance: no acute distress HEENT: Positive: PERRL Neck: Positive: trachea midline Cardiac: Positive: Reg Rate and Rhythm Lungs: Positive: clear to auscultation, Normal Breath Sounds Neuro: Positive: Grossly Intact Abdomen: Positive: Soft Skin: Negative: Rash, Suspicious Lesions, Ulceration Extremities: Present: upper extr. pulses. Absent: edema Results 10/15/21 05:30 10/16/21 07:55 Comprehensive Metabolic Panel 10/16/21 Range/Units 07:55 Sodium 141 (137-145) mmol/L Potassium 4.3 (3.6-5.0) mmol/L Chloride 105.2 (98-107) mmol/L Carbon Dioxide 23 (22-30) mmol/L BUN 43 H (9-20) mg/dL Creatinine 2.4 H (0.8-1.3) mg/dL Glucose 208 H (75-100) mg/dL Calcium 8.9 (8.4-10.2) mg/dL - Imaging and Cardiology Echo: report reviewed EKG: report reviewed, image reviewed EKG interpretations - Telemetry EKG Rhythm: Sinus Rhythm - EKG Sinus rhythms and dysrhythmias: sinus rhythm Repolarization changes or abnormalities: nonspecific abnormality, ST segment, and/or T wave Assessment and Plan Patient is an 81 y/o male with a pmhx of HTN and DM who came to [facility] with a complaint of worsening dysphagia for 4-5 days prior to admission. Esophagitis New cardiomyopathy COPD GUILLAUME Dysphagia HTN DM Echo 10/15/2021-EF 35 to 40%. Right ventricle systolic function is mildly reduced. Left atrium is borderline dilated. Mild mitral regurgitation. Mild pulmonary hypertension. Left ventricular systolic function is moderately decreased Plan: EKG shows sinus rhythm rate [address] abnormalities. No acute Changes troponin negative x1. Patient currently chest pain-free Due to hypertension and new diagnosed cardiomyopathy will initiate Coreg 3.125 mg p.o. twice daily, hydralazine 25 mg p.o. 3 times daily, and Imdur 30 mg p.o. daily Will plan for outpatient ischemic eval Pt is high-risk (non-modifiable) to proceed with EGD. RCRI Class IV (3 points, 15.% risk of MACE within 30 days). No cardiac contraindication for procedure Patient seen in conjunction with Dr. 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
[2021-10-16] MEDS: hydrALAZINE 25 MG TAB PO SCH (21:56)
[2021-10-16] MEDS: carvediloL 3.125 MG TAB PO SCH (21:57)
[2021-10-17] MEDS: INSULIN LISPRO 100 UNIT/ML SUB-Q SCH ×5 (00:46→18:25)
[2021-10-17] MEDS: hydrALAZINE 25 MG TAB PO SCH ×3 (05:47→22:13)
[2021-10-17 09:55] LABS: Hematocrit 40.8 % (35.5-45.6); Hemoglobin 13.1 gm/dl (11.8-15.2); Mean Corpuscular HGB Conc 32 % (32-34); Mean Corpuscular Volume 86 fl (84-94); Red Blood Count 4.77 M/mm3 (3.65-5.03); Red Cell Distribution Width 14.7 % (13.2-15.2)
[2021-10-17 10:00] LABS: Calcium 8.7 mg/dL (8.4-10.2)
[2021-10-17] MEDS: predniSONE 20 MG TAB PO SCH (10:00)
[2021-10-17 10:05] LABS: Platelet Count 129 K/mm3 (140-440)
[2021-10-17] MEDS: ENOXAPARIN 30 MG/0.3 ML INJ SUB-Q SCH ×2 (10:05→11:47)
[2021-10-17] MEDS ORDERED: carvediloL 3.125 MG TAB PO SCH (10:42)
--- NOTE | 2021-10-17 11:22 | Progress Note ---
Assessment and Plan Patient is an 81 y/o male with a pmhx of HTN and DM who came to [facility] with a complaint of worsening dysphagia for 4-5 days prior to admission. Esophagitis New cardiomyopathy COPD GUILLAUME Dysphagia HTN DM Echo 10/15/2021-EF 35 to 40%. Right ventricle systolic function is mildly reduced. Left atrium is borderline dilated. Mild mitral regurgitation. Mild pulmonary hypertension. Left ventricular systolic function is moderately decreased Plan: Continue Coreg 3.125 mg p.o. twice daily, hydralazine 25 mg p.o. 3 times daily, and Imdur 30 mg p.o. daily Patient has elevated heart rate will increase Coreg to 6.25 mg p.o. twice daily Will plan for outpatient ischemic eval Pt is high-risk (non-modifiable) to proceed with EGD. RCRI Class IV (3 points, 15.% risk of MACE within 30 days). No cardiac contraindication for procedure Patient seen in conjunction with Dr. Seth who agrees with this plan of care - Patient Problems (1) Acute dyspnea Current Visit: Yes Status: Acute (2) Esophagitis Current Visit: Yes Status: Acute (3) COPD (chronic obstructive pulmonary disease) Current Visit: Yes Status: Acute (4) T2DM (type 2 diabetes mellitus) Current Visit: Yes Status: Chronic Qualifiers: Diabetes mellitus fdc insulin use: unspecified fdc insulin use status (5) SIRS (systemic inflammatory response syndrome) Current Visit: Yes Status: Acute (6) GUILLAUME (acute kidney injury) Current Visit: Yes Status: Acute (7) Elevated brain natriuretic peptide (BNP) level Current Visit: Yes Status: Acute (8) Esophagitis Current Visit: Yes Status: Acute (9) Dysphagia Current Visit: Yes Status: Acute Subjective Date of service: 10/17/21 Principal diagnosis: GUILLAUME Interval history: Patient resting in bed in no acute distress Sinus 71 on monitor no events Objective Vital Signs Temp Pulse Resp BP Pulse Ox 10/17/21 05:47 96 H 134/82 10/17/21 04:33 98.1 F 70 16 134/82 99 10/16/21 23:00 94 10/16/21 21:57 83 153/93 10/16/21 21:56 83 153/93 10/16/21 21:09 98.5 F 83 16 153/93 98 10/16/21 17:06 98.2 F 84 18 144/80 100 01/24/22 11:26 97.9 F 84 18 146/72 98 - Physical Examination General: No Apparent Distress HEENT: Positive: PERRL Neck: Positive: trachea midline Cardiac: Positive: Reg Rate and Rhythm Lungs: Positive: Normal Breath Sounds Neuro: Positive: Grossly Intact Abdomen: Positive: Soft Skin: Negative: Rash, Suspicious Lesions, Ulceration Extremities: Present: upper extr. pulses. Absent: edema - Labs and Meds CBC 10/17/21 Range/Units 08:52 WBC 9.1 (4.5-11.0) K/mm3 RBC 4.77 (3.65-5.03) M/mm3 Hgb 13.1 (11.8-15.2) gm/dl Hct 40.8 (35.5-45.6) % Plt Count 129 L (140-440) K/mm3 Comprehensive Metabolic Panel 10/17/21 Range/Units 08:52 Sodium 143 (137-145) mmol/L Potassium 4.2 (3.6-5.0) mmol/L Chloride 106.6 (98-107) mmol/L Carbon Dioxide 25 (22-30) mmol/L BUN 46 H (9-20) mg/dL Creatinine 2.3 H (0.8-1.3) mg/dL Glucose 93 (75-100) mg/dL Calcium 8.7 (8.4-10.2) mg/dL - Imaging and Cardiology EKG: report reviewed, image reviewed Echo: report reviewed - Telemetry EKG Rhythm: Sinus Rhythm - EKG Sinus rhythms and dysrhythmias: sinus rhythm Repolarization changes or abnormalities: nonspecific abnormality, ST segment, and/or T wave
[2021-10-17] MEDS: cefTRIAXone/NS 2 GM/100 ML 2 GM/100 ML BAG IV SCH (11:23)
[2021-10-17] MEDS: AZITHROMYCIN/NS 500 MG/250 ML 500 MG/250 ML BAG IV SCH (11:24)
[2021-10-17] MEDS: carvediloL 3.125 MG TAB PO SCH (11:32)
[2021-10-17] MEDS: carvediloL 6.25 MG TAB PO SCH ×2 (11:40→22:11)
[2021-10-17] MEDS: PANTOPRAZOLE 40 MG INJ IV SCH ×2 (11:41→23:24)
[2021-10-17] MEDS ORDERED: SODIUM CHLORIDE 0.9% 1000 ML 1,000 ML ONE (12:21)
--- NOTE | 2021-10-17 12:46 | Anesthesia Day of Surgery ---
Anesthesia Day of Surgery - Day of Surgery Patient Examined: Yes Patient H&P Reviewed: Yes Patient is NPO: Yes
--- NOTE | 2021-10-17 12:46 | Anesthesia Consultation ---
Anesthesia Consult and Med Hx Date of service: 10/17/21 - Airway Anesthetic Teeth Evaluation: Good ROM Head & Neck: Adequate Mental/Hyoid Distance: Adequate Mallampati Class: Class II Intubation Access Assessment: Probably Good - Pulmonary Exam CTA: Yes - Cardiac Exam Cardiac Exam: RRR - Pre-Operative Health Status ASA Pre-Surgery Classification: ASA4 Proposed Anesthetic Plan: MAC - Pulmonary Hx Smoking: Yes (quit 40 years ago) Hx Asthma: No Hx Respiratory Symptoms: No COPD: Yes Hx Sleep Apnea: No - Cardiovascular System Hx Hypertension: Yes (EF 35-40%) Hx Heart Attack/AMI: No - Central Nervous System Hx Neuromuscular Disorder: No - Gastrointestinal Hx Ulcer: No Hx Gastroesophageal Reflux Disease: Yes (occasional) - Endocrine Hx Renal Disease: Yes Hx Liver Disease: No Hx Non-Insulin Dependent Diabetes: Yes Hx Thyroid Disease: No - Hematic Hx Anemia: No Hx Sickle Cell Disease: No - Other Systems Hx Alcohol Use: No Hx Substance Use: No Hx Cancer: No Hx Obesity: No - Additional Comments Anesthesia Medical History Comments: no hx of anesthesia complications
[2021-10-17] MEDS ORDERED: propofoL 200 MG/20 ML VIAL IV ONE (12:47)
--- NOTE | 2021-10-17 13:06 | Operative Report ---
Operative Report Operative Report: Date:10/17/2021 Endoscopist: Gonzalo Cardozo MD (Jenny) EGD REPORT PREOPERATIVE DIAGNOSIS:dysphagia, abnormal Ct of esophagus POSTOPERATIVE DIAGNOSIS:hiatal hernia, esophagitis, gastritis ESTIMATED BLOOD LOSS:minimal DESCRIPTION OF PROCEDURE: A high-resolution EGD scope was passed through the oropharynx, esophagus, stomach, and second portion of duodenum. The scope was carefully withdrawn. Retroflexion was performed in the stomach. At the end of the procedure, the scope was cleaned using normal technique. Vital signs monitored continuously throughout. SEDATION: Provided by Anesthesiology Services. COMPLICATIONS: None. FINDINGS: 1. Edema and erythema in the hypopharynx without obvious lesions. 2. A small hiatal hernia. 3. Diffuse linear ulcerations with LA grade C esophagitis in the mid to distal esophagus. No bleeding noted. Small bite biopsies obtained. No obvious underlying malignancy noted. 4. Diffuse erythematous and edematous mucosa in the antrum and gastric body. Biopsies obtained. 5. Normal duodenum exam. RECOMMENDATIONS: 1. Resume diet. 2. Continue with protonix bid. 3. Recommend sucralfate TID. 4. Recommend repeat EGD as outpatient to ensure healing of esophagitis and rule out underlying malignancy and Granda's esophagus. 5. Recommend ENT referral for edema in the hypopharynx. 6. Will sign off. please call with questions. Gonzalo Cardozo MD (Jenny) [facility]
--- NOTE | 2021-10-17 16:54 | Progress Note ---
Assessment and Plan - Patient Problems (1) GUILLAUME (acute kidney injury) Current Visit: Yes Status: Acute Plan to address problem: Acute kidney injury prerenal azotemia versus acute tubular necrosis secondary to volume depletion and radiocontrast exposure. Continue gentle volume repletion. Avoid exposure to nephrotoxins including NSAIDs and radiocontrast if possible. Get urine studies and kidney ultrasound. Follow-up electrolytes and renal function (2) Hypokalemia Current Visit: Yes Status: Acute Plan to address problem: Probably secondary to decreased oral intake. K normalized with Supplement potassium (3) Hypertensive emergency Current Visit: Yes Status: Acute Plan to address problem: Blood pressure elevated on presentation but has improved. Follow-up blood pressure on current medications (4) Esophagitis Current Visit: Yes Status: Acute Plan to address problem: Started on proton pump inhibitor per GI. Follow-up EGD (5) Dysphagia Current Visit: Yes Status: Acute Plan to address problem: Esophagitis versus malignancy. 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: unspecified correction insulin use status Plan to address problem: Blood sugar management by primary attending Subjective Date of service: 10/17/21 Principal diagnosis: GUILLAUME Interval history: Patient is awake, alert, in no acute respiratory distress Objective - Vital Signs Vital signs: Vital Signs - 12hr 10/17/21 10/17/21 10/17/21 05:47 10:00 11:00 Temperature 97.9 F Pulse Rate 96 H 67 66 Respiratory 20 Rate Blood Pressure 134/82 142/86 Blood Pressure 138/81 [Left] O2 Sat by Pulse 95 Oximetry 10/17/21 10/17/21 10/17/21 11:40 12:18 13:06 Temperature 98.4 F 98.1 F Pulse Rate 67 94 H 73 Respiratory 15 15 Rate Blood Pressure 142/86 158/91 128/65 Blood Pressure [Left] O2 Sat by Pulse 99 98 Oximetry 10/17/21 13:36 Temperature Pulse Rate 91 H Respiratory 17 Rate Blood Pressure 129/69 Blood Pressure [Left] O2 Sat by Pulse 100 Oximetry - General Appearance General appearance: well-developed, well-nourished, appears stated age EENT: ATNC, PERRL, mucous membranes moist Neck: no JVD Respiratory: Present: Clear to Ascultation Cardiology: regular, S1S2 Gastrointestinal: normoactive bowel sounds Integumentary: no rash Neurologic: no focal deficit, alert and oriented x3, strength 5/5 Psychiatric: mood/affect appropriate, cooperative - Lab 10/17/21 08:52 10/17/21 08:52 Most recent lab results Calcium 8.7 mg/dL (8.4-10.2) 10/17/21 08:52 Phosphorus 3.90 mg/dL (2.5-4.5) 10/16/21 07:55 Magnesium 1.80 mg/dL (1.7-2.3) 10/16/21 07:55 Medications & Allergies - Medications Allergies/Adverse Reactions: Allergies No Known Allergies Allergy (Verified 10/14/21 04:47) Home Medications: Home Medications Medication Instructions Recorded Confirmed Last Taken Type Lisinopril 10/15/21 10/14/21 History glipiZIDE 10/15/21 10/14/21 History Active Medications: Generic Name Dose Route Start Last Admin Trade Name Freq PRN Reason Stop Dose Admin Acetaminophen 650 mg 10/14/21 23:15 Acetaminophen 325 Mg Tab PO Q4H PRN Pain MILD(1-3)/Fever >100.5/ROONEY Albuterol 2.5 mg 10/16/21 09:33 Albuterol 2.5 Mg/3 Ml Nebu IH Q4HRT PRN Shortness Of Breath Carvedilol 6.25 mg 10/17/21 11:15 10/17/21 11:40 Carvedilol 6.25 Mg Tab PO 6.25 mg BID MARY Administration Enoxaparin Sodium 30 mg 10/15/21 10:00 10/17/21 11:47 Enoxaparin 30 Mg/0.3 Ml Inj SUB-Q Not Given QDAY MARY Hydralazine HCl 25 mg 10/16/21 22:00 10/17/21 05:47 Hydralazine 25 Mg Tab PO 25 mg Q8HR MARY Administration Hydromorphone HCl 0.5 mg 10/14/21 23:15 Hydromorphone 1 Mg/1 Ml Inj IV Q3H PRN Pain , Severe (7-10) Azithromycin 500 mg in 250 mls @ 250 mls/hr 10/14/21 23:45 10/17/21 11:24 Zithromax/Ns IV 10/18/21 10:59 250 mls/hr Q24HR MARY Administration Ceftriaxone Sodium 2 gm in 100 mls @ 200 mls/hr 10/15/21 10:00 10/17/21 11:23 Rocephin/Ns 2 Gm/100 Ml IV 10/19/21 10:29 200 mls/hr Q24HR MARY Administration Protocol Insulin Human Lispro 0 unit 10/15/21 06:00 10/17/21 05:41 Insulin Lispro 100 Unit/Ml SUB-Q Not Given Q6HR [facility] Protocol Isosorbide Mononitrate 30 mg 10/17/21 10:00 10/17/21 10:00 Isosorbide Mononitrate Er 30 Mg Tab PO 30 mg QDAY MARY Administration Metoclopramide HCl 5 mg 10/14/21 23:15 Metoclopramide 10 Mg/2 Ml Inj IV Q6H PRN Nausea And Vomiting Morphine Sulfate 2 mg 10/14/21 23:15 Morphine 2 Mg/1 Ml Inj IV Q4H PRN Pain, Moderate (4-6) Ondansetron HCl 4 mg 10/14/21 23:15 Ondansetron 4 Mg/2 Ml Inj IV Q8H PRN Nausea And Vomiting Pantoprazole Sodium 40 mg 10/14/21 23:45 10/17/21 11:41 Pantoprazole 40 Mg Inj IV 40 mg Q12H MARY Administration Prednisone 20 mg 10/17/21 10:00 10/17/21 10:00 Prednisone 20 Mg Tab PO 20 mg QDAY MARY Administration Sodium Chloride 10 ml 10/15/21 10:00 10/17/21 11:25 Sodium Chloride 0.9% 10 Ml Flush Syringe IV 10 ml BID MARY Administration Sodium Chloride 10 ml 10/16/21 14:42 Sodium Chloride 0.9% 50 Ml Ivpb IV PRN PRN FLUSH
[2021-10-17 20:00] LABS: Creatinine,Urine 242.4 mg/dL (0.1-20.0)
--- NOTE | 2021-10-17 20:29 | Progress Note ---
Assessment and Plan Assessment and plan: 81-year-old -Citizen Of [place] male with history of hypertension and diabetes comes in for shortness of breath and sore throat. Started around 10 PM last night. No nausea or vomiting. No fever or chills. Shortness of breath at rest. No chest pain. No back pain. No travel or sick contacts. Patient has some difficulty swallowing and some pain with swallowing. Initial work-up chest x-ray next Lungs mild increased pulmonary vascularity with interstitial prominence and bilateral lungs. No pneumothorax. Findings No prevertebral soft tissue swelling. The airway appears open. There is shift of the trachea to the left in the upper neck which may be related to degenerative changes or thyroid swelling Soft tissue of the neck No foreign body. Distal trachea to the left Could be secondary to thyroid mass Nonspecific Chest CT No CT evidence of pulmonary embolism Diffuse thickening of the esophageal wall throughout Clinical correlation quality recommended with GI Small pleural effusion Neck CT diffuse esophageal wall thickening throughout. Follow-up with GI as recommended Scattered small nodes throughout the neck however no dominant adenopathy or dominant mass. Symptoms asymmetric soft tissue inflammation surrounding the area in the region of the vocal folds pyriform sinuses and vallecula. SIRS (systemic inflammatory response syndrome) Hypertensive emergency GUILLAUME (acute kidney injury) Secondary to vasomotor nephropathy Esophagitis/dysphagia; GI evaluated, had EGD; gastritis status post biopsies Advised follow-up with ENT for edema on the hypopharynx COPD (chronic obstructive pulmonary disease) T2DM (type 2 diabetes mellitus) Elevated brain natriuretic peptide (BNP) level Person under investigation for COVID-19 COVID-19 test negative Elevated D-dimer Plan 10/15: Clinically patient has functional improvement room air sat is 100%. Nevertheless exertion has not been checked. Imaging studies is negative for pulmonary embolism. We will obtain a Doppler of the lower extremities and also obtain nephrology consultation due to worsening renal function which could be secondary to contrast-induced nephropathy versus mild underlying chronic stable congestive heart failure. Will await echocardiogram report at this time. We will also adjust insulin for better management Will obtain pulmonary consultation to further evaluate narrowing of the trachea possible extrinsic versus intrinsic compression. Patient initiated on valsartan and amlodipine and Coreg IV hydralazine 10 mg every 3 hours as needed GI evaluation Protonix 40 mg IV twice a day Patient initiated on IV antibiotics Rocephin and, Zithromax and IV Solu-Medrol May be discontinued in 24 to 48 hours depending on patient's response 10/16: Continue supportive care, could not get EGD today due to oral intake, rein forced NPO education with the patient. Pulmonary evaluated the patient, no Tracheal narrowing noted. Patient can be discharged following EGD. Awaiting Thyroid ultrasound, noted mildly elevated Free T4. Continue gentle hydration-Nephrology following Continue insulin therapy No PE, NO COVID, 10/17; status post EGD: Gastritis status post biopsy Possible discharge tomorrow, follow-up ENT, GI per schedule Inflammatory markers elevated Lactic acid is elevated Rule out COVID Accu-Cheks every 6 and coverage Echocardiogram for ejection fraction and valve function Plan discussed with the patient and with the nurse at bedside. History Interval history: I seen and examined the patient at the bedside Patient underwent EGD/acute gastritis s/p biopsy GI cleared for regular diet Advised follow-up with ENT for further evaluation of edematous hypopharynx Patient feels slightly better Hospitalist Physical - Constitutional Vitals: Temp Pulse Resp BP Pulse Ox 98.1 F 91 H 17 129/69 100 10/17/21 13:06 10/17/21 13:36 10/17/21 13:36 10/17/21 13:36 10/17/21 13:36 General appearance: Present: no acute distress, cachectic, disheveled - EENT Eyes: Present: PERRL, EOM intact - Neck Neck: Present: supple, normal ROM - Respiratory Respiratory effort: normal Respiratory: bilateral: diminished, negative: rales, rhonchi, wheezing - Cardiovascular Rhythm: regular Heart Sounds: Present: S1 & S2 - Extremities Extremities: no ischemia, No edema - Abdominal General gastrointestinal: soft, non-tender, non-distended, normal bowel sounds - Integumentary Integumentary: Present: clear, warm - Psychiatric Psychiatric: other (Confused) - Neurologic Neurologic: moves all extremities HEART Score - HEART Score Troponin: Troponin T 0.011 ng/mL (0.00-0.029) 10/14/21 04:21 Results - Labs CBC & Chem 7: 10/17/21 08:52 10/17/21 08:52 Labs: Laboratory Last Values WBC 9.1 K/mm3 (4.5-11.0) 10/17/21 08:52 RBC 4.77 M/mm3 (3.65-5.03) 10/17/21 08:52 Hgb 13.1 gm/dl (11.8-15.2) 10/17/21 08:52 Hct 40.8 % (35.5-45.6) 10/17/21 08:52 MCV 86 fl (84-94) 10/17/21 08:52 MCH 28 pg (28-32) 10/17/21 08:52 MCHC 32 % (32-34) 10/17/21 08:52 RDW 14.7 % (13.2-15.2) 10/17/21 08:52 Plt Count 129 K/mm3 (140-440) L 10/17/21 08:52 Lymph % (Auto) 17.6 % (13.4-35.0) 10/14/21 04:21 [place] % (Auto) 8.9 % (0.0-7.3) H 10/14/21 04:21 Eos % (Auto) 2.0 % (0.0-4.3) 10/14/21 04:21 Baso % (Auto) 0.5 % (0.0-1.8) 10/14/21 04:21 Lymph # (Auto) 2.2 K/mm3 (1.2-5.4) 10/14/21 04:21 [place] # (Auto) 1.1 K/mm3 (0.0-0.8) H 10/14/21 04:21 Eos # (Auto) 0.3 K/mm3 (0.0-0.4) 10/14/21 04:21 Baso # (Auto) 0.1 K/mm3 (0.0-0.1) 10/14/21 04:21 Add Manual Diff Complete 10/15/21 05:30 Total Counted 100 10/15/21 05:30 Seg Neutrophils % Medical Transcription Supervisor 10/15/21 05:30 Seg Neuts % (Manual) 95.0 % (40.0-70.0) H 10/15/21 05:30 Band Neutrophils % 0 % 10/15/21 05:30 Lymphocytes % (Manual) 2.0 % (13.4-35.0) L 10/15/21 05:30 Reactive Lymphs % (Man) 0 % 10/15/21 05:30 Monocytes % (Manual) 3.0 % (0.0-7.3) 10/15/21 05:30 Eosinophils % (Manual) 0 % (0.0-4.3) 10/15/21 05:30 Basophils % (Manual) 0 % (0.0-1.8) 10/15/21 05:30 Metamyelocytes % 0 % 10/15/21 05:30 Myelocytes % 0 % 10/15/21 05:30 Promyelocytes % 0 % 10/15/21 05:30 Blast Cells % 0 % 10/15/21 05:30 Nucleated RBC % Not Reportable 10/15/21 05:30 Seg Neutrophils # 8.9 K/mm3 (1.8-7.7) H 10/14/21 04:21 Seg Neutrophils # Man 12.8 K/mm3 (1.8-7.7) H 10/15/21 05:30 Band Neutrophils # 0.0 K/mm3 10/15/21 05:30 Lymphocytes # (Manual) 0.3 K/mm3 (1.2-5.4) L 10/15/21 05:30 Abs React Lymphs (Man) 0.0 K/mm3 10/15/21 05:30 Monocytes # (Manual) 0.4 K/mm3 (0.0-0.8) 10/15/21 05:30 Eosinophils # (Manual) 0.0 K/mm3 (0.0-0.4) 10/15/21 05:30 Basophils # (Manual) 0.0 K/mm3 (0.0-0.1) 10/15/21 05:30 Metamyelocytes # 0.0 K/mm3 10/15/21 05:30 Myelocytes # 0.0 K/mm3 10/15/21 05:30 Promyelocytes # 0.0 K/mm3 10/15/21 05:30 Blast Cells # 0.0 K/mm3 10/15/21 05:30 WBC Morphology Not Reportable 10/15/21 05:30 Hypersegmented Neuts Not Reportable 10/15/21 05:30 Hyposegmented Neuts Not Reportable 10/15/21 05:30 Hypogranular Neuts Not Reportable 10/15/21 05:30 Smudge Cells Not Reportable 10/15/21 05:30 Toxic Granulation Not Reportable 10/15/21 05:30 Toxic Vacuolation Not Reportable 10/15/21 05:30 Dohle Bodies Not Reportable 10/15/21 05:30 Pelger-Huet Anomaly Not Reportable 10/15/21 05:30 Matt Rods Not Reportable 10/15/21 05:30 Platelet Estimate Consistent w auto 10/15/21 05:30 Clumped Platelets Not Reportable 10/15/21 05:30 Plt Clumps, EDTA Not Reportable 10/15/21 05:30 Large Platelets Not Reportable 10/15/21 05:30 Giant Platelets Not Reportable 10/15/21 05:30 Platelet Satelliting Not Reportable 10/15/21 05:30 Plt Morphology Comment Not Reportable 10/15/21 05:30 RBC Morphology Normal 10/15/21 05:30 Dimorphic RBCs Not Reportable 10/15/21 05:30 Polychromasia Not Reportable 10/15/21 05:30 Hypochromasia Not Reportable 10/15/21 05:30 Poikilocytosis Not Reportable 10/15/21 05:30 Anisocytosis Not Reportable 10/15/21 05:30 Microcytosis Not Reportable 10/15/21 05:30 Macrocytosis Not Reportable 10/15/21 05:30 Spherocytes Not Reportable 10/15/21 05:30 Pappenheimer Bodies Not Reportable 10/15/21 05:30 Sickle Cells Not Reportable 10/15/21 05:30 Target Cells Not Reportable 10/15/21 05:30 Tear Drop Cells Not Reportable 10/15/21 05:30 Ovalocytes Not Reportable 10/15/21 05:30 Helmet Cells Not Reportable 10/15/21 05:30 [place] Bodies Not Reportable 10/15/21 05:30 Palmer Rings Not Reportable 10/15/21 05:30 Rogers Cells Not Reportable 10/15/21 05:30 Bite Cells Not Reportable 10/15/21 05:30 Crenated Cell Not Reportable 10/15/21 05:30 Elliptocytes Not Reportable 10/15/21 05:30 Acanthocytes (Spur) Not Reportable 10/15/21 05:30 Rouleaux Not Reportable 10/15/21 05:30 Hemoglobin C Crystals Not Reportable 10/15/21 05:30 Schistocytes Not Reportable 10/15/21 05:30 Malaria parasites Not Reportable 10/15/21 05:30 Arnoldo Bodies Not Reportable 10/15/21 05:30 Hem Pathologist Commnt No 10/15/21 05:30 PT 13.9 Sec. (12.2-14.9) 10/14/21 04:21 INR 0.96 (0.87-1.13) 10/14/21 04:21 D-Dimer 473.24 ng/mlDDU (0-234) H 10/14/21 04:21 Sodium 143 mmol/L (137-145) 10/17/21 08:52 Potassium 4.2 mmol/L (3.6-5.0) 10/17/21 08:52 Chloride 106.6 mmol/L (98-107) 10/17/21 08:52 Carbon Dioxide 25 mmol/L (22-30) 10/17/21 08:52 Anion Gap 16 mmol/L 10/17/21 08:52 BUN 46 mg/dL (9-20) H 10/17/21 08:52 Creatinine 2.3 mg/dL (0.8-1.3) H 10/17/21 08:52 Estimated GFR 33 ml/min 10/17/21 08:52 BUN/Creatinine Ratio 20 % 10/17/21 08:52 Glucose 93 mg/dL (75-100) 10/17/21 08:52 POC Glucose 247 mg/dL (70-105) H 10/17/21 17:53 Hemoglobin A1c 8.2 % (4-6) H 10/15/21 05:30 Lactic Acid 4.10 mmol/L (0.7-2.0) H* 10/14/21 05:43 Calcium 8.7 mg/dL (8.4-10.2) 10/17/21 08:52 Phosphorus 3.90 mg/dL (2.5-4.5) 10/16/21 07:55 Magnesium 1.80 mg/dL (1.7-2.3) 10/16/21 07:55 Total Bilirubin 0.50 mg/dL (0.1-1.2) 10/15/21 05:30 AST 49 units/L (5-40) H 10/15/21 05:30 ALT 62 units/L (7-56) H 10/15/21 05:30 Alkaline Phosphatase 88 units/L (35-129) 10/15/21 05:30 Troponin T 0.011 ng/mL (0.00-0.029) 10/14/21 04:21 NT-Pro-B Natriuret Pep 4751 pg/mL (0-900) H 10/14/21 22:33 Total Protein 6.9 g/dL (6.3-8.2) 10/15/21 05:30 Albumin 3.9 g/dL (3.9-5) 10/15/21 05:30 Albumin/Globulin Ratio 1.3 % 10/15/21 05:30 TSH 1.020 mlU/mL (0.270-4.200) 10/15/21 12:32 Free T4 1.56 ng/dL (0.76-1.46) H 10/15/21 12:32 Urine Color Yellow (Yellow) 10/15/21 23:10 Urine Turbidity Slightly-cloudy (Clear) 10/15/21 23:10 Urine pH 5.0 (5.0-7.0) 10/15/21 23:10 Ur Specific [place] 1.029 (1.003-1.030) 10/15/21 23:10 Urine Protein 100 mg/dl mg/dL (Negative) 10/15/21 23:10 Urine Glucose (UA) >=500 mg/dL (Negative) 10/15/21 23:10 Urine Ketones Tr mg/dL (Negative) 10/15/21 23:10 Urine Blood Neg (Negative) 10/15/21 23:10 Urine Nitrite Neg (Negative) 10/15/21 23:10 Urine Bilirubin Neg (Negative) 10/15/21 23:10 Urine Urobilinogen < 2.0 mg/dL (<2.0) 10/15/21 23:10 Ur Leukocyte Esterase Neg (Negative) 10/15/21 23:10 Urine WBC (Auto) 3.0 /HPF (0.0-6.0) 10/15/21 23:10 Urine RBC (Auto) 1.0 /HPF (0.0-6.0) 10/15/21 23:10 U Epithel Cells (Auto) 3.0 /HPF (0-13.0) 10/15/21 23:10 Urine Bacteria (Auto) 2+ /HPF (Negative) 10/15/21 23:10 Hyaline Casts 4 /LPF 10/15/21 23:10 Urine Mucus Few /HPF 10/15/21 23:10 Urine Creatinine 242.4 mg/dL (0.1-20.0) H 10/15/21 23:10 Urine Total Protein 49 mg/dL (5-11.8) H 10/15/21 23:10 Coronavirus (PCR) Negative (Negative) 10/15/21 09:10 Govea/IV: Voiding Method Urinal Active Medications - Current Medications Current Medications: Generic Name Dose Route Start Last Admin Trade Name Freq PRN Reason Stop Dose Admin Acetaminophen 650 mg 10/14/21 23:15 Acetaminophen 325 Mg Tab PO Q4H PRN Pain MILD(1-3)/Fever >100.5/ROONEY Albuterol 2.5 mg 10/16/21 09:33 Albuterol 2.5 Mg/3 Ml Nebu IH Q4HRT PRN Shortness Of Breath Carvedilol 6.25 mg 10/17/21 11:15 10/17/21 11:40 Carvedilol 6.25 Mg Tab PO 6.25 mg BID MARY Administration Enoxaparin Sodium 30 mg 10/15/21 10:00 10/17/21 11:47 Enoxaparin 30 Mg/0.3 Ml Inj SUB-Q Not Given QDAY MARY Hydralazine HCl 25 mg 10/16/21 22:00 10/17/21 14:00 Hydralazine 25 Mg Tab PO Not Given Q8HR MARY Hydromorphone HCl 0.5 mg 10/14/21 23:15 Hydromorphone 1 Mg/1 Ml Inj IV Q3H PRN Pain , Severe (7-10) Azithromycin 500 mg in 250 mls @ 250 mls/hr 10/14/21 23:45 10/17/21 11:24 Zithromax/Ns IV 10/18/21 10:59 250 mls/hr Q24HR MARY Administration Ceftriaxone Sodium 2 gm in 100 mls @ 200 mls/hr 10/15/21 10:00 10/17/21 11:23 Rocephin/Ns 2 Gm/100 Ml IV 10/19/21 10:29 200 mls/hr Q24HR MARY Administration Protocol Insulin Human Lispro 0 unit 10/15/21 06:00 10/17/21 18:25 Insulin Lispro 100 Unit/Ml SUB-Q 4 unit Q6HR MARY Administration Protocol Isosorbide Mononitrate 30 mg 10/17/21 10:00 10/17/21 10:00 Isosorbide Mononitrate Er 30 Mg Tab PO 30 mg QDAY MARY Administration Metoclopramide HCl 5 mg 10/14/21 23:15 Metoclopramide 10 Mg/2 Ml Inj IV Q6H PRN Nausea And Vomiting Morphine Sulfate 2 mg 10/14/21 23:15 Morphine 2 Mg/1 Ml Inj IV Q4H PRN Pain, Moderate (4-6) Ondansetron HCl 4 mg 10/14/21 23:15 Ondansetron 4 Mg/2 Ml Inj IV Q8H PRN Nausea And Vomiting Pantoprazole Sodium 40 mg 10/14/21 23:45 10/17/21 11:41 Pantoprazole 40 Mg Inj IV 40 mg Q12H MARY Administration Prednisone 20 mg 10/17/21 10:00 10/17/21 10:00 Prednisone 20 Mg Tab PO 20 mg QDAY MARY Administration Sodium Chloride 10 ml 10/15/21 10:00 10/17/21 11:25 Sodium Chloride 0.9% 10 Ml Flush Syringe IV 10 ml BID MARY Administration Sodium Chloride 10 ml 10/16/21 14:42 Sodium Chloride 0.9% 50 Ml Ivpb IV PRN PRN FLUSH Nutrition/Malnutrition Assess - Dietary Evaluation Nutrition/Malnutrition Findings: Nutrition Notes Start: 10/15/21 14:49 Freq: Status: Active Protocol: Document 10/17/21 17:57 WILNER (Rec: 10/17/21 18:05 WILNER [id number]) Nutrition Notes Initial or Follow up Brief Note Current Diet NPO (since 10/17 00:01). Height 5 ft 5 in Weight 58.967 kg [place] Body Weight (kg) 61.81 BMI 21.6 Weight change and time frame No body weight change reported . Weight Status Appropriate Subjective/Other Information RD consult for routine F/U on dietary advancement. 10/16 Pt's PO intake of meals was Good (100%), according to ADL notes. 10/17 Endoscopy procedure; findings: Hiatal Hernia, Esophagitis, Gastritis. Pt will start regular diet today, according to RN notes. Will F/U again for dietary advancement. Nutrition Intervention Follow-Up By: 10/19/21 Additional Comments Continue monitoring food tolerance, %PO intake of meals , and BM.
[2021-10-18] MEDS: INSULIN LISPRO 100 UNIT/ML SUB-Q SCH ×3 (00:24→12:00)
[2021-10-18] MEDS: hydrALAZINE 25 MG TAB PO SCH ×2 (06:26→14:17)
--- NOTE | 2021-10-18 08:28 | Discharge Summary ---
Providers - Providers Date of Admission: 10/16/21 11:04 Date of discharge: 10/18/21 Attending physician: CHAPIN ALVAREZ 10/14/21 23:15 Consult to Physician [CONS] Routine Comment: Consulting Provider: SLIM MENDOZA Physician Instructions: Reason For Exam: Esophagitis 10/15/21 08:18 Consult to Physician [CONS] Routine Comment: Consulting Provider: JAIMIE GILMAN Physician Instructions: Reason For Exam: guillaume 10/15/21 12:45 Consult to Physician [CONS] Routine Comment: Consulting Provider: RUSTAM GRAF Physician Instructions: Reason For Exam: shortness of breath 10/16/21 15:29 Consult to Physician [CONS] Routine Comment: Consulting Provider: BULMARO SETH Physician Instructions: Reason For Exam: cardiomyopathy, risk assessment for EGD 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 care 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: 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 [employer]INGUAL Hospitalization Condition: Fair Hospital course: SIRS (systemic inflammatory response syndrome) Hypertensive emergency GUILLAUME (acute kidney injury) Secondary to vasomotor nephropathy Esophagitis/dysphagia; GI evaluated, had EGD; gastritis status post biopsies Advised follow-up with ENT for edema on the hypopharynx Status post EGD with biopsy Diffuse linear ulcerations of LA grade C esophagitis in the mid to distal esophagus Diffuse erythematous edematous mucosa in the antrum and gastric body biopsied GI recommend Protonix twice daily, sucralfate 3 times daily repeat EGD outpatient Recommend ENT to evaluate edema in the hypopharynx COPD (chronic obstructive pulmonary disease) T2DM (type 2 diabetes mellitus) Elevated brain natriuretic peptide (BNP) level Person under investigation for COVID-19 COVID-19 test negative Elevated D-dimer Patient walks Disposition: 01 HOME / SELF CARE / HOMELESS Final Discharge Diagnosis (Prints w/discharge instructions): SIRS. Hypertensive emergency. Acute kidney injury. Esophagitis/gastritis. COPD. Type 2 diabetes mellitus. PUI COVID-19 negative Time spent for discharge: 35 min Core Measure Documentation - Palliative Care Palliative Care/ Comfort Measures: Not Applicable - Core Measures Any of the following diagnoses?: none Exam - Constitutional Vitals: Temp Pulse Resp BP Pulse Ox 98.4 F 62 16 123/63 98 10/18/21 04:44 10/18/21 06:26 10/18/21 04:44 10/18/21 06:26 10/18/21 04:44 Plan Activity: advance as tolerated, fall precautions Diet: other (Cardiac diet) Additional Instructions: Advised to see private ENT Dr.Cerenko Elizabeth for further evaluation of dysphagia and edema hypopharynx[recommended by GI]. follow-up appointment with Dr. Seth, [facility] geological specialist, on 11/20/2021 at 10 AM at our [place] location. Phone #[phone] Follow up with: KARRI CHO MD [Staff Physician] - 7 Days PRIMARY CARE, [Primary Care Provider] - 3-5 Days BULMARO SETH MD [Staff Physician] - 11/20/21 10:00 am FARTUN HARKINS MD [Staff Physician] - 14 Days SWETHA MCBRIDE MD [Staff Physician] - 7 Days Prescriptions: hydrALAZINE [Apresoline TAB] 25 mg PO Q8HR #90 tablet Sucralfate [Carafate] 1 gm PO Q8H #90 tablet carvediloL [Coreg] 6.25 mg PO BID #60 tablet ISOSORBIDE MONOnitrate [Imdur ER] 30 mg PO QDAY #30 tablet Pantoprazole [Protonix] 40 mg PO BID #60 tablet
[2021-10-18] MEDS: ENOXAPARIN 30 MG/0.3 ML INJ SUB-Q SCH (09:54)
[2021-10-18] MEDS: carvediloL 6.25 MG TAB PO SCH (09:54)
[2021-10-18] MEDS: cefTRIAXone/NS 2 GM/100 ML 2 GM/100 ML BAG IV SCH (09:55)
[2021-10-18] MEDS: predniSONE 20 MG TAB PO SCH (10:18)
[2021-10-18] MEDS: AZITHROMYCIN/NS 500 MG/250 ML 500 MG/250 ML BAG IV SCH (11:09)
--- NOTE | 2021-10-18 11:24 | Progress Note ---
Assessment and Plan Patient is an 81 y/o male with a pmhx of HTN and DM who came to [facility] with a complaint of worsening dysphagia for 4-5 days prior to admission. Esophagitis New cardiomyopathy COPD GUILLAUME Dysphagia HTN DM Echo 10/15/2021-EF 35 to 40%. Right ventricle systolic function is mildly reduced. Left atrium is borderline dilated. Mild mitral regurgitation. Mild pulmonary hypertension. Left ventricular systolic function is moderately decreased Plan: Continue Coreg 3.125 mg p.o. twice daily, hydralazine 25 mg p.o. 3 times daily, and Imdur 30 mg p.o. daily, Coreg to 6.25 mg p.o. twice daily Will plan for outpatient ischemic eval Discussed with patient importance of of follow-up and compliance medication patient verbalized understanding and agreement Patient cardiac status is stable for discharge Patient has a follow-up appointment with Dr. Seth, [facility] inside sales specialist, on 11/20/2021 at 10 AM at our [place] location. Phone #[phone] Patient seen in conjunction with Dr. Seth who agrees with this plan of care - Patient Problems (1) Acute dyspnea Current Visit: Yes Status: Acute (2) Esophagitis Current Visit: Yes Status: Acute (3) COPD (chronic obstructive pulmonary disease) Current Visit: Yes Status: Acute (4) T2DM (type 2 diabetes mellitus) Current Visit: Yes Status: Chronic Qualifiers: Diabetes mellitus nursing home insulin use: unspecified medical terminologist insulin use status (5) SIRS (systemic inflammatory response syndrome) Current Visit: Yes Status: Acute (6) GUILLAUME (acute kidney injury) Current Visit: Yes Status: Acute (7) Elevated brain natriuretic peptide (BNP) level Current Visit: Yes Status: Acute (8) Esophagitis Current Visit: Yes Status: Acute (9) Dysphagia Current Visit: Yes Status: Acute Subjective Date of service: 10/18/21 Principal diagnosis: GUILLAUME Interval history: Patient resting in bed in no acute distress Sinus 60s to 70s on monitor no events Objective Vital Signs Temp Pulse Resp BP Pulse Ox 10/18/21 08:20 18 95 10/18/21 06:26 62 123/63 10/18/21 04:44 98.4 F 62 16 123/63 98 10/17/21 22:13 72 150/90 10/17/21 22:11 72 150/90 10/17/21 22:00 96 10/17/21 21:38 97.7 F 72 16 150/90 99 10/17/21 15:24 98.8 F 72 18 133/76 98 10/17/21 13:36 91 H 17 129/69 100 10/17/21 13:06 98.1 F 73 15 128/65 98 10/17/21 12:18 98.4 F 94 H 15 158/91 99 10/17/21 11:40 67 142/86 - Physical Examination General: No Apparent Distress HEENT: Positive: PERRL Neck: Positive: trachea midline Cardiac: Positive: Reg Rate and Rhythm Lungs: Positive: Normal Breath Sounds Neuro: Positive: Grossly Intact Abdomen: Positive: Soft Skin: Negative: Rash, Suspicious Lesions, Ulceration Extremities: Present: upper extr. pulses. Absent: edema - Imaging and Cardiology EKG: report reviewed, image reviewed Echo: report reviewed - Telemetry EKG Rhythm: Sinus Rhythm - EKG Sinus rhythms and dysrhythmias: sinus rhythm Repolarization changes or abnormalities: nonspecific abnormality, ST segment, and/or T wave
--- NOTE | 2021-10-18 11:30 | Progress Note ---
Assessment and Plan - Patient Problems (1) GUILLAUME (acute kidney injury) Current Visit: Yes Status: Acute Plan to address problem: Acute kidney injury prerenal azotemia versus acute tubular necrosis secondary to volume depletion and radiocontrast exposure. Continue gentle volume repletion. Avoid exposure to nephrotoxins including NSAIDs and radiocontrast if possible. stable renal function, no indications for renal replacement therapy. Stable for discharge from renal stand point with outpatient GUILLAUME/CKD f/u (2) Hypokalemia Current Visit: Yes Status: Acute Plan to address problem: Probably secondary to decreased oral intake. K normalized with Supplement potassium (3) Hypertensive emergency Current Visit: Yes Status: Acute Plan to address problem: Blood pressure elevated on presentation but has improved. Follow-up blood pressure on current medications (4) Esophagitis Current Visit: Yes Status: Acute Plan to address problem: Started on proton pump inhibitor per GI. Follow-up EGD (5) Dysphagia Current Visit: Yes Status: Acute Plan to address problem: Esophagitis versus malignancy. For esophagogastroduodenoscopy per sql application developer (6) COPD (chronic obstructive pulmonary disease) Current Visit: Yes Status: Acute Plan to address problem: Continue management by primary attending (7) SIRS (systemic inflammatory response syndrome) Current Visit: Yes Status: Acute Plan to address problem: Follow-up cultures (8) T2DM (type 2 diabetes mellitus) Current Visit: Yes Status: Chronic Qualifiers: Diabetes mellitus custodial insulin use: unspecified custodial insulin use status Plan to address problem: Blood sugar management by primary attending Subjective Date of service: 10/18/21 Principal diagnosis: GUILLAUME Interval history: Patient is awake, alert, in no acute respiratory distress Objective - Vital Signs Vital signs: Vital Signs - 12hr 10/18/21 10/18/21 10/18/21 04:44 06:26 08:20 Temperature 98.4 F Pulse Rate 62 62 Respiratory 16 18 Rate Blood Pressure 123/63 123/63 O2 Sat by Pulse 98 95 Oximetry - General Appearance General appearance: well-developed, appears stated age EENT: ATNC, PERRL, mucous membranes moist Neck: no JVD Respiratory: Present: Clear to Ascultation Cardiology: regular, S1S2 Gastrointestinal: normoactive bowel sounds Integumentary: no rash Neurologic: no focal deficit - Lab 10/17/21 08:52 10/17/21 08:52 Most recent lab results Calcium 8.7 mg/dL (8.4-10.2) 10/17/21 08:52 Phosphorus 3.90 mg/dL (2.5-4.5) 10/16/21 07:55 Magnesium 1.80 mg/dL (1.7-2.3) 10/16/21 07:55 Urine Creatinine 242.4 mg/dL (0.1-20.0) H 10/15/21 23:10 Urine Total Protein 49 mg/dL (5-11.8) H 10/15/21 23:10 Medications & Allergies - Medications Allergies/Adverse Reactions: Allergies No Known Allergies Allergy (Verified 10/14/21 04:47) Home Medications: Home Medications Medication Instructions Recorded Confirmed Last Taken Type Lisinopril 10/15/21 10/14/21 History glipiZIDE 10/15/21 10/14/21 History Active Medications: Generic Name Dose Route Start Last Admin Trade Name Freq PRN Reason Stop Dose Admin Acetaminophen 650 mg 10/14/21 23:15 Acetaminophen 325 Mg Tab PO Q4H PRN Pain MILD(1-3)/Fever >100.5/ROONEY Albuterol 2.5 mg 10/16/21 09:33 Albuterol 2.5 Mg/3 Ml Nebu IH Q4HRT PRN Shortness Of Breath Carvedilol 6.25 mg 10/17/21 11:15 10/18/21 09:54 Carvedilol 6.25 Mg Tab PO 6.25 mg BID MARY Administration Enoxaparin Sodium 30 mg 10/15/21 10:00 10/18/21 09:54 Enoxaparin 30 Mg/0.3 Ml Inj SUB-Q 30 mg QDAY MARY Administration Hydralazine HCl 25 mg 10/16/21 22:00 10/18/21 06:26 Hydralazine 25 Mg Tab PO 25 mg Q8HR MARY Administration Hydromorphone HCl 0.5 mg 10/14/21 23:15 Hydromorphone 1 Mg/1 Ml Inj IV Q3H PRN Pain , Severe (7-10) Ceftriaxone Sodium 2 gm in 100 mls @ 200 mls/hr 10/15/21 10:00 10/18/21 09:55 Rocephin/Ns 2 Gm/100 Ml IV 10/19/21 10:29 200 mls/hr Q24HR MARY Administration Protocol Insulin Human Lispro 0 unit 10/15/21 06:00 10/18/21 06:22 Insulin Lispro 100 Unit/Ml SUB-Q 3 unit Q6HR MARY Administration Protocol Isosorbide Mononitrate 30 mg 10/17/21 10:00 10/18/21 09:54 Isosorbide Mononitrate Er 30 Mg Tab PO 30 mg QDAY MARY Administration Metoclopramide HCl 5 mg 10/14/21 23:15 Metoclopramide 10 Mg/2 Ml Inj IV Q6H PRN Nausea And Vomiting Morphine Sulfate 2 mg 10/14/21 23:15 Morphine 2 Mg/1 Ml Inj IV Q4H PRN Pain, Moderate (4-6) Ondansetron HCl 4 mg 10/14/21 23:15 Ondansetron 4 Mg/2 Ml Inj IV Q8H PRN Nausea And Vomiting Pantoprazole Sodium 40 mg 10/14/21 23:45 10/17/21 23:24 Pantoprazole 40 Mg Inj IV 40 mg Q12H MARY Administration Prednisone 20 mg 10/17/21 10:00 10/18/21 10:18 Prednisone 20 Mg Tab PO 20 mg QDAY MARY Administration Sodium Chloride 10 ml 10/15/21 10:00 10/18/21 10:03 Sodium Chloride 0.9% 10 Ml Flush Syringe IV 10 ml BID MARY Administration Sodium Chloride 10 ml 10/16/21 14:42 Sodium Chloride 0.9% 50 Ml Ivpb IV PRN PRN FLUSH
[2021-10-18] MEDS: PANTOPRAZOLE 40 MG INJ IV SCH (13:57)
[2021-10-18 14:32] VITALS: BP 133/74
--- NOTE | 2021-10-19 13:17 | Electrocardiograph Report ---
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
== END 2021-10-18 16:06 | disposition home health service (06) | DRG 391 ==
LOC: ED 03:04 → 3A 23:15 → OBSVTOIN 10-16 11:04
PROVIDERS: ADMIT Internal Medicine; ATTEND Internal Medicine
PROC: 0DJ08ZZ Inspection of Upper Intestinal Tract, Via Natural or Artificial Opening Endoscopic (ICD-10-PCS; principal; 2021-10-17)
DX: K20.90 Esophagitis, unspecified without bleeding (principal); N17.0 Acute kidney failure with tubular necrosis; J44.1 Chronic obstructive pulmonary disease with (acute) exacerbation; R65.10 Systemic inflammatory response syndrome (SIRS) of non-infectious origin without acute organ dysfunction; I16.1 Hypertensive emergency; I42.9 Cardiomyopathy, unspecified; Z20.822 Contact with and (suspected) exposure to COVID-19; I10 Essential (primary) hypertension; E11.9 Type 2 diabetes mellitus without complications; Z82.49 Family history of ischemic heart disease and other diseases of the circulatory system; R13.10 Dysphagia, unspecified; E87.6 Hypokalemia; K44.9 Diaphragmatic hernia without obstruction or gangrene; K29.70 Gastritis, unspecified, without bleeding
CPT/HCPCS: 36415; 70360; 70490; 71045; 71275; 76536; 80048; 80053; 81001; 82140; 82570; 82962; 83036; 83735; 83880; 84100; 84156; 84439; 84443; 84484; 85007; 85025; 85027; 85379; 85610; 88305; 88342; 93005; 93010; 93306; 94640; 94644; G0378; J7120; Q0162; Q9967; C9113; J0360; J0456; J0696; J1650; J1815; J1956; J2405; J2704; J2765; J2920; J2930; J7030; U0003

== ENCOUNTER 2021-10-23 18:03 | Emergency (ER) | payer MEDICARE ==
[2021-10-23 18:51] VITALS: BP 160/74
--- NOTE | 2021-10-23 19:08 | Emergency Department Report ---
HPI - General Chief Complaint: Hyperglycemia Time Seen by Provider: 10/23/21 18:52 - HPI HPI: 81-year-old -[place] male presents to the emergency department with a complaint of elevated and uncontrolled blood sugar. Patient was just recently admitted here for some difficulty with swallowing, shortness of breath, and had an echocardiogram showing an EF of 35 to 40% with newly diagnosed cardiomyopathy. He also had an EGD that showed esophagitis and gastritis. During his most recent admission the patient was also found to have GUILLAUME. The patient says that when he was discharged home that they stopped his. Oral diabetes medications. He checked his blood sugar today and says that it was greater than 500. He complains of some shortness of breath but says that it is the same shortness of breath that brought him in last week and has been continuing since discharge. He has not taken anything for symptoms prior to presentation. He denies any fever, chest pain, lower extremity swelling, nausea, vomiting or diaphoresis. ED Past Medical Hx - Past Medical History Previous Medical History?: Yes Hx Hypertension: Yes (EF 35-40%) Hx Heart Attack/AMI: No Hx Diabetes: Yes Hx Liver Disease: No Hx Renal Disease: Yes Hx Sickle Cell Disease: No Hx Asthma: No Hx COPD: Yes Hx HIV: No - Surgical History Past Surgical History?: No - Social History Smoking Status: Unknown if ever smoked - Medications Home Medications: Home Medications Medication Instructions Recorded Confirmed Last Taken Type glipiZIDE 10/15/21 10/14/21 History ISOSORBIDE MONOnitrate [Imdur ER] 30 mg PO QDAY #30 tablet 10/18/21 Unknown Rx Pantoprazole [Protonix] 40 mg PO BID #60 tablet 10/18/21 Unknown Rx Sucralfate [Carafate] 1 gm PO Q8H #90 tablet 10/18/21 Unknown Rx carvediloL [Coreg] 6.25 mg PO BID #60 tablet 10/18/21 Unknown Rx hydrALAZINE [Apresoline TAB] 25 mg PO Q8HR #90 tablet 10/18/21 Unknown Rx predniSONE [Deltasone] 20 mg PO QDAY #5 tab 10/18/21 Unknown Rx ED Review of Systems ROS: Stated complaint: HIGH GLUCOSE/BLURR VISION/SHANNAN Other details as noted in HPI Comment: All other systems reviewed and negative Constitutional: denies: chills, fever Eyes: denies: eye pain, vision change ENT: denies: ear pain, throat pain Respiratory: shortness of breath. denies: cough Cardiovascular: denies: chest pain, edema Gastrointestinal: denies: abdominal pain, vomiting Genitourinary: denies: dysuria, discharge Musculoskeletal: denies: back pain, arthralgia Skin: denies: rash, lesions Neurological: denies: headache, numbness Physical Exam - Physical Exam Vital Signs: Vital Signs 10/23/21 18:47 Temperature 97.9 F Pulse Rate 62 Respiratory 15 Rate Blood Pressure 160/74 O2 Sat by Pulse 98 Oximetry Physical Exam: GENERAL: The patient is well-developed well-nourished. HENT: Normocephalic. Atraumatic. Patient has moist mucous membranes. EYES: Extraocular motions are intact. NECK: Supple. Trachea is midline. CHEST/LUNGS: Clear to auscultation. There is no respiratory distress noted. HEART/CARDIOVASCULAR: Regular. There is no tachycardia. There is no murmur. ABDOMEN: Abdomen is soft, nontender. Patient has normal bowel sounds. SKIN: Skin is warm and dry. NEURO: The patient is awake, alert, and oriented. The patient is cooperative. Normal speech. MUSCULOSKELETAL: There is no tenderness or deformity. There is no limitation range of motion. ED Course Vital Signs 10/23/21 18:47 Temperature 97.9 F Pulse Rate 62 Respiratory 15 Rate Blood Pressure 160/74 O2 Sat by Pulse 98 Oximetry ED Medical Decision Making - Lab Data Result diagrams: 10/23/21 19:26 10/23/21 19:26 Labs 10/23/21 10/23/21 10/23/21 18:50 19:26 19:26 WBC 8.4 RBC 5.16 H Hgb 13.9 Hct 43.9 MCV 85 MCH 27 L MCHC 32 RDW 14.7 Plt Count 184 Lymph % (Auto) 12.6 L Perkins % (Auto) 9.8 H Eos % (Auto) 0.5 Baso % (Auto) 0.2 Lymph # (Auto) 1.1 L Perkins # (Auto) 0.8 Eos # (Auto) 0.0 Baso # (Auto) 0.0 Seg Neutrophils % 76.9 H Seg Neutrophils # 6.5 VBG pH Sodium 132 L Potassium 4.1 Chloride 98.2 Carbon Dioxide 21 L Anion Gap 17 BUN 43 H Creatinine 2.1 H Estimated GFR 37 BUN/Creatinine Ratio 20 Glucose 407 H POC Glucose 437 H Calcium 8.5 Total Bilirubin 0.40 AST 23 ALT 37 Alkaline Phosphatase 81 Total Protein 6.1 L Albumin 3.4 L Albumin/Globulin Ratio 1.3 Urine Color Urine Turbidity Urine pH Ur Specific [place] Urine Protein Urine Glucose (UA) Urine Ketones Urine Blood Urine Nitrite Urine Bilirubin Urine Urobilinogen Ur Leukocyte Esterase Urine WBC (Auto) Urine RBC (Auto) Urine Bacteria (Auto) Urine Mucus 10/23/21 10/23/21 10/23/21 19:26 20:35 21:07 WBC RBC Hgb Hct MCV MCH MCHC RDW Plt Count Lymph % (Auto) Perkins % (Auto) Eos % (Auto) Baso % (Auto) Lymph # (Auto) Perkins # (Auto) Eos # (Auto) Baso # (Auto) Seg Neutrophils % Seg Neutrophils # VBG pH 7.355 Sodium Potassium Chloride Carbon Dioxide Anion Gap BUN Creatinine Estimated GFR BUN/Creatinine Ratio Glucose POC Glucose 369 H Calcium Total Bilirubin AST ALT Alkaline Phosphatase Total Protein Albumin Albumin/Globulin Ratio Urine Color Straw Urine Turbidity Clear Urine pH 5.0 Ur Specific [place] 1.018 Urine Protein <15 mg/dl Urine Glucose (UA) >=500 Urine Ketones Neg Urine Blood Neg Urine Nitrite Neg Urine Bilirubin Neg Urine Urobilinogen < 2.0 Ur Leukocyte Esterase Neg Urine WBC (Auto) < 1.0 Urine RBC (Auto) 4.0 Urine Bacteria (Auto) 1+ Urine Mucus Few 10/23/21 22:31 WBC RBC Hgb Hct MCV MCH MCHC RDW Plt Count Lymph % (Auto) Perkins % (Auto) Eos % (Auto) Baso % (Auto) Lymph # (Auto) Perkins # (Auto) Eos # (Auto) Baso # (Auto) Seg Neutrophils % Seg Neutrophils # VBG pH Sodium Potassium Chloride Carbon Dioxide Anion Gap BUN Creatinine Estimated GFR BUN/Creatinine Ratio Glucose POC Glucose 116 H Calcium Total Bilirubin AST ALT Alkaline Phosphatase Total Protein Albumin Albumin/Globulin Ratio Urine Color Urine Turbidity Urine pH Ur Specific [place] Urine Protein Urine Glucose (UA) Urine Ketones Urine Blood Urine Nitrite Urine Bilirubin Urine Urobilinogen Ur Leukocyte Esterase Urine WBC (Auto) Urine RBC (Auto) Urine Bacteria (Auto) Urine Mucus - Radiology Data Radiology results: image reviewed interpreted by me: Chest x-ray does not show any acute process. There are no pleural effusions, obvious pneumonia and there is no pneumothorax. No widened mediastinum. - Medical Decision Making This patient presents to the emergency department with complaint of hyperglycemia. He says that when he was discharged from the hospital a few days ago that they discontinued his diabetes medications. His Accu-Chek came back at about 430. Serum blood sugar was at about 400. No elevation in the anion gap or any venous acidosis and the patient does not appear in diabetic ketoacidosis. He was given a 500 cc bolus of IV fluid and a dose of IV insulin. Upon reevaluation his blood sugar came down to about 115. The patient had complained of continued shortness of breath, similar to his most recent admission. Heart and lung sounds are normal to auscultation the patient does not appear in any respiratory or acute distress. Chest x-ray does not sh ow any pneumonia, pleural effusions, pneumothorax, widened mediastinum, or any other acute process. His most recent consultation from pulmonology states that his shortness of breath may be secondary to type II pulmonary hypertension. The patient was given outpatient referral for cardiology during his last discharge, and I once again gave him this referral. Labs show some renal insufficiency with a GFR of about 37. This is actually improved from his recent values during his last discharge. He was previously given an outpatient referral for nephrology, Dr. Cho, and I have given him this referral again. I was unable to find the information from consults or discharge as to why the patient, with history of aal-mvsngmo-jpvjgepna diabetes, was stopped from taking his oral hypoglycemics. We discussed staying away from foods that are high in sugar, carbohydrates and starches, and keeping a blood sugar log. He has been instructed to follow-up in the morning with his primary care physician for medication reconciliation. Vital signs have been reassuring throughout his ED course including being afebrile and no hypoxia. For these reasons the patient appears safe for discharge home at this time. He has been instructed to return to the emergency department with any worsening of his symptoms or with any acute distress. Critical Care Time: No Critical care attestation.: If time is entered above; I have spent that time in minutes in the direct care of this critically ill patient, excluding procedure time. ED Disposition Clinical Impression: Hyperglycemia, Renal insufficiency Hypertension Qualifiers: Hypertension type: primary hypertension Qualified Code(s): I10 - Essential (primary) hypertension Disposition: 01 HOME / SELF CARE / HOMELESS Is pt being admited?: No Condition: Stable Instructions: Hypertension (ED) Additional Instructions: Please follow-up with your primary care physician regarding your diabetes and medication reconciliation. Please try to stay away from foods that are high in sugar, carbohydrates and starches. Keep a blood sugar log. During your most recent admission and discharge, you were encouraged to follow- up outpatient with Dr. Cho (nephrology), Dr. Villa (ENT), and Dr Seth (cardiology). Just in case I have given you their outpatient referrals once again. Return to the emergency department with any worsening of your symptoms, new or c oncerning symptoms not addressed during this current emergency department visit, or with any acute distress. Referrals: KARRI CHO MD [Staff Physician] - 3-5 Days SWETHA VILLA MD [Staff Physician] - 3-5 Days BULMARO SETH MD [Staff Physician] - 3-5 Days Time of Disposition: 22:42
--- NOTE | 2021-10-23 19:50 | XRay Report ---
CHEST 2 VIEWS INDICATION: SOB. COMPARISON: 10/14/2019 FINDINGS: SUPPORT DEVICES: None. HEART: Within normal limits. LUNGS/PLEURA: No acute air space or interstitial disease. No pneumothorax. ADDITIONAL FINDINGS: None. IMPRESSION: 1. No acute findings. Signer Name: Raphael Cortez MD Signed: 10/23/2021 7:46 PM Workstation Name: [id number]
[2021-10-23 20:07] LABS: Basophils % (Auto) 0.2 % (0.0-1.8); Eosinophils % (Auto) 0.5 % (0.0-4.3); Hematocrit 43.9 % (35.5-45.6); Hemoglobin 13.9 gm/dl (11.8-15.2); Lymphocytes # (Auto) 1.1 K/mm3 (1.2-5.4); Lymphocytes % (Auto) 12.6 % (13.4-35.0); Mean Corpuscular HGB Conc 32 % (32-34); Mean Corpuscular Volume 85 fl (84-94); Monocytes # (Auto) 0.8 K/mm3 (0.0-0.8); Monocytes % (Auto) 9.8 % (0.0-7.3); Platelet Count 184 K/mm3 (140-440); Red Blood Count 5.16 M/mm3 (3.65-5.03); Red Cell Distribution Width 14.7 % (13.2-15.2)
[2021-10-23] MEDS ORDERED: SODIUM CHLORIDE 0.9% 500 ML 500 ML IV ONE (20:09)
[2021-10-23] MEDS ORDERED: INSULIN REGULAR, HUMAN 100 UNITS/1 ML IV ONE ×2 (20:09→20:31)
[2021-10-23 20:21] LABS: Albumin 3.4 g/dL (3.9-5); Calcium 8.5 mg/dL (8.4-10.2)
[2021-10-23 21:15] LABS: Bacteria,Urine 1+ /HPF (Negative); Bilirubin,Urine NEG (Negative); Blood,Urine NEG (Negative); Color,Urine Straw (Yellow); Mucus,Urine FEW /HPF; Protein,Urine <15 mg/dL mg/dL (Negative); Urobilinogen,Urine < 2.0 mg/dL (<2.0); WBC,Urine < 1.0 /HPF (0.0-6.0)
== END 2021-10-23 23:25 | disposition home or self-care (01) ==
LOC: ED 18:03
DX: E11.65 Type 2 diabetes mellitus with hyperglycemia (principal); I10 Essential (primary) hypertension; N28.9 Disorder of kidney and ureter, unspecified; J44.9 Chronic obstructive pulmonary disease, unspecified
CPT/HCPCS: 36415; 71046; 80053; 81001; 82805; 82962; 85025; 96374; 99283; J7040; Q9967; J1815